=== PATIENT | male | born 1955 | race Caucasian/White ===

== ENCOUNTER 2017-01-23 07:55 | Outpatient (CLI) | payer MEDICARE ==
[2017-01-23] VITALS (19 sets, daily range): BP systolic 115–147; BP diastolic 76–92
[~2017-01-23 07:55] MED LIST: ARIP30TA11 PO; ARMO250T2 PO; ASPI-611 PO; CLON1TAB4 PO; FLUO60SO2 TOP; HYDR-3972 PO; KETO120S2 TOP; MUPI15CR TOP; NITR0.4T51 SL; OMEP-50 PO; SUCR1ORA2 PO; TAMS0.4C32 PO; vitamin D PO
== END 2017-01-23 23:59 | disposition home or self-care (01) ==
LOC: CARD DIAG 07:55
PROVIDERS: ATTEND Internal Medicine Interventional Cardiology
DX: R42 Dizziness and giddiness (principal); I10 Essential (primary) hypertension
CPT/HCPCS: 93660

== ENCOUNTER 2018-05-24 03:25 | Outpatient (CLI) | payer MEDICARE ==
[~2018-05-24 03:25] MED LIST changes: +CLON1TAB12 PO; -CLON1TAB4 PO; -KETO120S2 TOP; +KETO120S3 TOP
== END 2018-05-24 23:59 | disposition home or self-care (01) ==
LOC: DIABETIC 03:25
PROVIDERS: ATTEND Internal Medicine
DX: E11.65 Type 2 diabetes mellitus with hyperglycemia (principal); I11.0 Hypertensive heart disease with heart failure; I50.9 Heart failure, unspecified; Z79.84 Long term (current) use of oral hypoglycemic drugs; Z88.8 Allergy status to other drugs, medicaments and biological substances
CPT/HCPCS: G0108

== ENCOUNTER 2018-07-04 12:34 | Observation (INO) | payer MEDICARE ==
[~2018-07-04] VITALS: Ht 180.3 cm; Wt 87.3 kg
[2018-07-04 13:13] LABS: BASOPHILS # (AUTO) 0.1 X10'3 (0-0.2); BASOPHILS % (AUTO) 0.8 % (0-1); EOSINOPHILS # (AUTO) 0.2 X10'3 (0-0.9); EOSINOPHILS % (AUTO) 1.8 % (0-6); HEMATOCRIT 38.6 % (42.0-52.0); HEMOGLOBIN 12.7 g/dl (14.0-17.9); LYMPHOCYTES % (AUTO) 32.3 % (21-51); MEAN CORPUSCULAR HEMOGLOBIN 27.9 PG (27.0-31.0); MEAN CORPUSCULAR VOLUME 84.7 FL (78-98); MEAN PLATELET VOLUME 7.6 FL (7.4-10.4); MONOCYTES # (AUTO) 0.4 X10'3 (0-0.9); MONOCYTES % (AUTO) 4.5 % (2-12); NEUTROPHILS # (AUTO) 5.7 X10'3 (1.8-7.7); NEUTROPHILS % (AUTO) 60.6 % (42-75); PLATELET COUNT 240 X10'3 (140-440); RED BLOOD COUNT 4.56 X10'6 (4.70-6.10); RED CELL DISTRIBUTION WIDTH 14.2 % (11.5-14.5); WHITE BLOOD COUNT 9.4 X10'3 (4.5-11.0)
[2018-07-04 13:24] LABS: ALANINE AMINOTRANSFERASE 30 U/L (12-78); ALBUMIN 3.6 G/DL (3.4-5.0); ALBUMIN/GLOBULIN RATIO 1.1 (1.1-1.5); ALKALINE PHOSPHATASE 142 IU/L (46-116); ANION GAP 7 (8-16); ASPARTATE AMINO TRANSFERASE 15 U/L (10-37); BILIRUBIN,TOTAL 0.2 MG/DL (0.1-1.0); BLOOD UREA NITROGEN 17 MG/DL (7-18); BUN/CREATININE RATIO 16.7 (5.4-32.0); CALCIUM 8.9 MG/DL (8.5-10.1); CHLORIDE 104 MMOL/L (99-107); CREATININE 1.02 MG/DL (0.60-1.10); GLUCOSE 181 MG/DL (70-104); POTASSIUM 4.1 MMOL/L (3.5-5.1); SODIUM 137 MMOL/L (135-145); TOTAL CARBON DIOXIDE 26.3 MMOL/L (24-32); TOTAL PROTEIN 6.9 G/DL (6.4-8.2); eGFR 74 ML/MIN
[2018-07-04 13:26] LABS: PARTIAL THROMBOPLASTIN TIME 29 SECONDS (22-32)
[2018-07-04] MEDS ORDERED: NITR0.4T SL (18:17)
[2018-07-04] MEDS ORDERED: GABA-532 PO (18:17)
[2018-07-04] MEDS ORDERED: VENL75CA61 PO (18:18)
[2018-07-04] MEDS ORDERED: MODA200T48 PO (18:18)
[2018-07-04] MEDS ORDERED: BENZ200C53 PO (18:18)
[2018-07-04] MEDS ORDERED: DOXY-224 PO (18:18)
[2018-07-04] MEDS ORDERED: DUTA0.5C16 PO (18:21)
[2018-07-04] MEDS ORDERED: CHOL100046 PO (18:21)
[2018-07-04] MEDS ORDERED: PITA4TAB2 PO (18:21)
[2018-07-04] MEDS ORDERED: GLIM1TAB46 PO (18:21)
[2018-07-04] MEDS ORDERED: LISI-604 PO (18:21)
[2018-07-04] MEDS ORDERED: HYDROcodone/acetaminophen 10/325mg tab PO PRN (19:45)
[2018-07-04] MEDS ORDERED: nitroGLYCERIN 0.4mg SUBLingual tab SL PRN ×2 (19:45→19:50)
[2018-07-04] MEDS ORDERED: regadenoson 0.4mg/5ml syringe IV ONE (19:50)
[2018-07-04] MEDS ORDERED: magnesium 2GM in 50ml NS 50 ML IV PRN (19:50)
[2018-07-04] MEDS ORDERED: potassium Cl 40MEQ/NS 500ml 500 ML IV PRN (19:50)
[2018-07-04] MEDS ORDERED: dextrose ORAL solution 15 GM/59 ML bottle PO PRN ×2 (19:50)
[2018-07-04] MEDS ORDERED: potassium Cl 20 mEq SR tablet PO PRN ×2 (19:50)
[2018-07-04] MEDS ORDERED: magnesium 4gm in 100ml NS 100 ML IV PRN (19:50)
[2018-07-04] MEDS ORDERED: aminophylline 250mg/10ml inj. IV PRN (19:50)
[2018-07-04] MEDS ORDERED: magnesium Cl slow-release 64mg tablet PO PRN (19:50)
[2018-07-04] MEDS ORDERED: glucagon, human recombinant 1mg kit SUBCUT PRN (19:50)
[2018-07-04] MEDS ORDERED: MESSAGE TO PHARMACY PO ONE (19:50)
[2018-07-04] MEDS ORDERED: acetaminophen 325mg tablet PO PRN (19:50)
[2018-07-04] MEDS ORDERED: metoprolol tartrate 1mg/ml inj IV PRN (19:50)
[2018-07-04] MEDS ORDERED: dextrose 50%-water 50ml dispensing syringe IV PRN ×2 (19:50)
[2018-07-04] MEDS ORDERED: magnesium hydroxide 30ml (MOM) UD suspension PO PRN (19:50)
[2018-07-04] MEDS ORDERED: mag hydrox/Alum hydrox/simeth 30ml oral suspension PO PRN (19:50)
[2018-07-04] MEDS ORDERED: potassium CL 10mEq/100ml bag 100 ML IV PRN (19:50)
[2018-07-04] MEDS ORDERED: insulin Lispro (HumaLOG) vial - multi-dose SQ SCH (19:50)
[2018-07-04] MEDS ORDERED: ondansetron/PF 4mg/2ml inj IV PRN (19:50)
[2018-07-04] MEDS ORDERED: docusate sod 100mg capsule PO SCH (20:00)
[2018-07-04] MEDS ORDERED: metoprolol tartrate 12.5mg (1/2 tablet) PO SCH (20:00)
--- NOTE | 2018-07-04 20:04 | NUR ---
spoke to pt and his daughter, they both confirm that he has no allergy to gabapentin
[2018-07-04 20:27] LABS: HEMOGLOBIN A1C 8.3 % (4.5-6.2)
[2018-07-04 21:00] VITALS: BP 122/76
[2018-07-04] MEDS: CefTRIAXone/D5W-Rocephin 1gm 50 ML IV SCH (21:26)
[2018-07-04] MEDS: clonazePAM 1mg tablet PO SCH (21:28)
[2018-07-04] MEDS: benzonatate 100mg capsule PO SCH (21:29)
[2018-07-04] MEDS: heparin, porcine 5000 units/ml vial SQ SCH (21:34)
[2018-07-04] MEDS: aspirin 81mg tablet.DR PO SCH (22:02)
[2018-07-05] VITALS (10 sets, daily range): BP systolic 99–136; BP diastolic 64–91
[2018-07-05 01:49] LABS: BASOPHILS # (AUTO) 0.1 X10'3 (0-0.2); BASOPHILS % (AUTO) 0.9 % (0-1); EOSINOPHILS # (AUTO) 0.2 X10'3 (0-0.9); EOSINOPHILS % (AUTO) 2.7 % (0-6); HEMATOCRIT 36.6 % (42.0-52.0); HEMOGLOBIN 12.3 g/dl (14.0-17.9); LYMPHOCYTES # (AUTO) 3.9 X10'3 (1.1-4.8); LYMPHOCYTES % (AUTO) 43.3 % (21-51); MEAN CORPUSCULAR HEMOGLOBIN 28.5 PG (27.0-31.0); MEAN CORPUSCULAR HGB CONC 33.6 g/dL (33.0-36.5); MEAN CORPUSCULAR VOLUME 84.7 FL (78-98); MEAN PLATELET VOLUME 7.9 FL (7.4-10.4); MONOCYTES # (AUTO) 0.5 X10'3 (0-0.9); MONOCYTES % (AUTO) 5.1 % (2-12); NEUTROPHILS # (AUTO) 4.3 X10'3 (1.8-7.7); PLATELET COUNT 217 X10'3 (140-440); RED BLOOD COUNT 4.32 X10'6 (4.70-6.10); RED CELL DISTRIBUTION WIDTH 14.2 % (11.5-14.5)
[2018-07-05 02:01] LABS: ALANINE AMINOTRANSFERASE 33 U/L (12-78); ALBUMIN 3.2 G/DL (3.4-5.0); ALBUMIN/GLOBULIN RATIO 1.1 (1.1-1.5); ALKALINE PHOSPHATASE 126 IU/L (46-116); ANION GAP 8 (8-16); ASPARTATE AMINO TRANSFERASE 14 U/L (10-37); BILIRUBIN,TOTAL 0.1 MG/DL (0.1-1.0); BLOOD UREA NITROGEN 16 MG/DL (7-18); BUN/CREATININE RATIO 18.6 (5.4-32.0); CALCIUM 8.6 MG/DL (8.5-10.1); CHLORIDE 107 MMOL/L (99-107); CHOL/HDL RATIO 2.4 (0.00-4.99); CHOLESTEROL 97 MG/DL (0-200); CREATININE 0.86 MG/DL (0.60-1.10); GLUCOSE 148 MG/DL (70-104); HDL CHOLESTEROL 40 MG/DL (35-60); LDL CHOLESTEROL 42 MG/DL (50-100); MAGNESIUM 1.4 MG/DL (1.5-2.4); POTASSIUM 3.5 MMOL/L (3.5-5.1); SODIUM 142 MMOL/L (135-145); TOTAL CARBON DIOXIDE 26.9 MMOL/L (24-32); TOTAL PROTEIN 6.2 G/DL (6.4-8.2); TRIGLYCERIDES 173 MG/DL (20-135); eGFR 90 ML/MIN
--- NOTE | 2018-07-05 06:26 | NUR ---
Problems reprioritized. Patient report given, questions answered & plan of care reviewed with Stephan RN.
--- NOTE | 2018-07-05 06:30 | NUR ---
Patient in room [facility]. I have received report from Ly/Mateo CARTER and had the opportunity to ask questions and assume patient care.
--- NOTE | 2018-07-05 06:40 | NUR ---
Observed and reviewed charting of Mateo CARTER, agree with care.
[2018-07-05] MEDS ORDERED: pantoprazole 40mg Tablet.DR PO SCH (07:30)
[2018-07-05] MEDS ORDERED: gabapentin 300mg capsule PO SCH (08:00)
[2018-07-05] MEDS ORDERED: aripiprazole 5mg tablet PO SCH (08:00)
[2018-07-05] MEDS ORDERED: lisinopril 5mg tablet PO SCH (08:00)
[2018-07-05] MEDS ORDERED: modafinil 100mg tablet PO SCH (08:00)
[2018-07-05] MEDS ORDERED: atorvastatin 20mg tablet PO SCH (08:00)
[2018-07-05] MEDS ORDERED: vitamin D (cholecalciferol) 1,000 unit tablet PO SCH (08:00)
[2018-07-05] MEDS ORDERED: fluticasone nasal spray 16GM bottle NS SCH (08:00)
[2018-07-05] MEDS: heparin, porcine 5000 units/ml vial SQ SCH (08:00)
[2018-07-05] MEDS ORDERED: tamsulosin 0.4mg capsule PO SCH (08:00)
[2018-07-05] MEDS ORDERED: venlafaxine XR 75mg capsule (Q24H) PO SCH (08:00)
[2018-07-05] MEDS ORDERED: lisinopril 10 MG tablet PO SCH (08:00)
[2018-07-05] MEDS ORDERED: K and/or MAG REPLACEMENT MC SCH (08:00)
[2018-07-05] MEDS ORDERED: dutasteride 0.5 MG capsule PO SCH (08:00)
[2018-07-05] MEDS ORDERED: aspirin 81mg tablet.DR PO SCH (08:00)
[2018-07-05] MEDS ORDERED: pneumococcal 23-VAL P-sac vacc 25 mcg/0.5ml vial IMVAC ONE (10:00)
[2018-07-05] MEDS: clonazePAM 1mg tablet PO SCH (10:23)
[2018-07-05] MEDS: aspirin 81mg tablet.DR PO SCH (10:24)
[2018-07-05] MEDS: benzonatate 100mg capsule PO SCH (10:28)
[2018-07-05] MEDS: CefTRIAXone/D5W-Rocephin 1gm 50 ML IV SCH (11:47)
[2018-07-05] MEDS ORDERED: regadenoson 0.4mg/5ml syringe IV ONE ×2 (12:25→12:33)
[2018-07-05] MEDS ORDERED: aminophylline inj. 10 ML IV ONE (12:32)
--- NOTE | 2018-07-05 14:30 | NUR ---
DM consult for newly diagnosed DM with A1c of 8.3, patient given written DM education handout with verbal review and referral to outpatient DM education class on Sunday. Pending discharge today. Addendum: 07/05/18 at [address] Amended: Links added.
--- NOTE | 2018-07-05 16:00 | NUR ---
Patient discharged into the care of his family, Patient IV taken out at [facility] of discharge, canula was whole and intact. Patient understand to have follow up with PCP and project scientist, but has no change to medications at this time. All belongings were sent home with patient at time of discharge.
== END 2018-07-05 16:09 | disposition home or self-care (01) ==
LOC: ER 12:34 → SUR 3N 20:30 → CMPBEDREQ 21:59 → UNDODISOB 07-05 12:32
PROVIDERS: ADMIT Internal Medicine; ATTEND Internal Medicine
DX: R07.89 Other chest pain (principal); E78.5 Hyperlipidemia, unspecified; F31.9 Bipolar disorder, unspecified; E11.9 Type 2 diabetes mellitus without complications; I25.10 Atherosclerotic heart disease of native coronary artery without angina pectoris; I11.0 Hypertensive heart disease with heart failure; I50.9 Heart failure, unspecified; I25.2 Old myocardial infarction; E78.00 Pure hypercholesterolemia, unspecified; Z88.5 Allergy status to narcotic agent; Z79.899 Other long term (current) drug therapy; Z79.82 Long term (current) use of aspirin; Z95.5 Presence of coronary angioplasty implant and graft
CPT/HCPCS: 36415; 71045; 78452; 80053; 80061; 82948; 83036; 83735; 84484; 85025; 85610; 85730; 87070; 93005; 93017; 93306; 96365; 96366; 96372; 99284; A9500; G0378; J0280; J0696; J1644

== ENCOUNTER 2018-07-23 04:43 | Outpatient (CLI) | payer MEDICARE ==
[~2018-07-23 04:43] MED LIST changes: -ARMO250T2 PO; +BENZ200C53 PO; +CHOL100046 PO; +DOXY-224 PO; +DUTA0.5C16 PO; -FLUO60SO2 TOP; +GABA-532 PO; +GLIM1TAB46 PO; +LISI-604 PO; +MODA200T48 PO; -MUPI15CR TOP; +NITR0.4T SL; -NITR0.4T51 SL; +PITA4TAB2 PO; -SUCR1ORA2 PO; +VENL75CA61 PO; -vitamin D PO
== END 2018-07-23 23:59 | disposition home or self-care (01) ==
LOC: DIABETIC 04:43
PROVIDERS: ATTEND Internal Medicine
DX: E11.69 Type 2 diabetes mellitus with other specified complication (principal); Z79.84 Long term (current) use of oral hypoglycemic drugs; Z79.899 Other long term (current) drug therapy
CPT/HCPCS: G0108

== ENCOUNTER 2020-02-14 13:23 | Emergency (ER) | payer MEDICARE ==
[~2020-02-14] VITALS: Ht 180.3 cm; Wt 88.6 kg
[~2020-02-14 13:23] MED LIST changes: +AMA1T PO; -ARIP30TA11 PO; +ARIP30TA22 PO; -DUTA0.5C16 PO; +DUTA0.5C17 PO; -GLIM1TAB46 PO; -KETO120S3 TOP; +KETO120S5 TOP
== END 2020-02-14 15:28 | disposition home or self-care (01) ==
LOC: ER 13:25
DX: U07.1 COVID-19 (principal); J02.8 Acute pharyngitis due to other specified organisms; I25.10 Atherosclerotic heart disease of native coronary artery without angina pectoris; E78.00 Pure hypercholesterolemia, unspecified; I10 Essential (primary) hypertension; Z98.61 Coronary angioplasty status; Z88.6 Allergy status to analgesic agent; Z88.8 Allergy status to other drugs, medicaments and biological substances; Z79.82 Long term (current) use of aspirin; Z79.2 Long term (current) use of antibiotics; Z79.899 Other long term (current) drug therapy
CPT/HCPCS: 36415; 87635; 99283

== ENCOUNTER 2022-03-13 09:07 | Day surgery (SDC) | payer MEDICARE ==
[2022-03-09 15:08] LABS: BASOPHILS % (AUTO) 0.2 % (0-1); EOSINOPHILS # (AUTO) 0.2 X10'3 (0-0.9); EOSINOPHILS % (AUTO) 1.8 % (0-6); LYMPHOCYTES % (AUTO) 30.5 % (21-51); MEAN CORPUSCULAR HEMOGLOBIN 26.9 PG (27.0-31.0); MEAN CORPUSCULAR HGB CONC 32.8 g/dL (33.0-36.5); MEAN PLATELET VOLUME 7.3 FL (7.4-10.4); MONOCYTES # (AUTO) 0.5 X10'3 (0-0.9); MONOCYTES % (AUTO) 5.3 % (2-12); NEUTROPHILS # (AUTO) 6.1 X10'3 (1.8-7.7); NEUTROPHILS % (AUTO) 62.2 % (42-75); PRE OP HEMATOCRIT 38.2 % (42.0-52.0); PRE OP HEMOGLOBIN 12.5 g/dL (14.0-17.9); PRE OP PLATELET COUNT 249 X10'3 (140-440); RED BLOOD COUNT 4.66 X10'6 (4.70-6.10); RED CELL DISTRIBUTION WIDTH 13.8 % (11.5-14.5)
[2022-03-09 15:34] LABS: ALBUMIN 3.7 G/DL (3.4-5.0); ALBUMIN/GLOBULIN RATIO 1.1 (1.1-1.5); ALKALINE PHOSPHATASE 258 IU/L (46-116); BLOOD UREA NITROGEN 16 MG/DL (7-18); BUN/CREATININE RATIO 15.5 (5.4-32.0); CALCIUM 9.3 MG/DL (8.5-10.1); CHLORIDE 99 MMOL/L (99-107); CREATININE 1.03 MG/DL (0.60-1.10); PRE OP ALT 45 U/L (30-65); PRE OP ANION GAP 7 (8-16); PRE OP AST 32 U/L (10-37); PRE OP BILIRUB, TOTAL 0.3 MG/DL (0.0-1.0); PRE OP GLUCOSE 192 MG/DL (70-104); PRE OP POTASSIUM 4.2 MMOL/L (3.4-5.1); PRE OP SODIUM 136 MMOL/L (135-145); TOTAL CARBON DIOXIDE 29.9 MMOL/L (24-32); TOTAL PROTEIN 7.2 G/DL (6.4-8.2); eGFR 72 ML/MIN
[~2022-03-13] VITALS: Ht 180.3 cm; Wt 96.4 kg
[2022-03-13] VITALS (9 sets, daily range): BP systolic 112–127; BP diastolic 68–77
[~2022-03-13 09:07] MED LIST changes: +ARMO250T6; -BENZ200C53 PO; +BUPIVAcaine/PF 5 mg/ml 10ml ONE; +CLON-371; -CLON1TAB12 PO; +DOCUMENT DATE & TIME OF BETA-BLOCKER PO ONE; -DOXY-224 PO; -DUTA0.5C17 PO; +DUTA0.5C36 PO; +EZET10TA48; -HYDR-3972 PO; -KETO120S5 TOP; -LISI-604 PO; +LISI5TAB22 PO; +METF-438; +METO25TA6; -MODA200T48 PO; -OMEP-50 PO; +OMEP20CA16 PO; +PITA4TAB; -PITA4TAB2 PO; +PRAZ1CAP5; +ceFAZolin inj. 2,000 MG in dextrose 5%-water 100 ML IV ONE; +famotidine 20mg tablet PO ONE; +fentaNYL/PF 50MCG/1 ML 2ML syringe IV PRN; +labetalol 20mg/4ml (5mg/ml) syringe IV PRN; +ondansetron/PF 4mg/2ml inj IV PRN; +ringers solution, lacted 1,000 ML IV SCH
[2022-03-13] MEDS ORDERED: fentaNYL/PF 50MCG/1 ML 2ML syringe ONE ×2 (10:53→10:58)
[2022-03-13] MEDS ORDERED: MIDAZolam 1 MG/ML 5ML VIAL ONE (10:54)
[2022-03-13] MEDS ORDERED: ketorolac trometh. 30mg/ml inj. ONE (10:54)
[2022-03-13] MEDS ORDERED: LIDOcaine 0.5% (5mg/ml) 50ml vial ONE (10:54)
--- NOTE | 2022-03-13 11:29 | NUR ---
Received from OR via [facility], accompanied by Anesthesiologist DR CRUZ and report given by Anesthesiolgist. PT PRESENTS WITH PIV 20 RIGHT HAND, LEFT ELBOW DRESSING CDI, VSS. Addendum: 03/13/22 at 1141 by Linda Vega RN, RN Amended: Links added.
--- NOTE | 2022-03-13 12:29 | NUR ---
ABLE TO SAFELY AMBULATE AND TRANSFER SELF. IV TAKEN OUT WITHOUT ANY COMPLICATIONS. ALL DISCHARGE INSTRUCTIONS COVERED WITH PATIENT AND ALL QUESTIONS ANSWERED. PATIENT TAKEN OUT VIA WHEELCHAIR TO PERSONAL VEHICLE WHERE FAMILY/FRIEND DROVE PATIENT HOME. Addendum: 03/13/22 at 1235 by Linda Vega RN, RN Amended: Links added.
== END 2022-03-13 12:29 | disposition home or self-care (01) ==
LOC: PAS 09:07
PROVIDERS: ATTEND Orthopaedic Surgery Hand Surgery
DX: M77.12 Lateral epicondylitis, left elbow (principal); I10 Essential (primary) hypertension; J44.9 Chronic obstructive pulmonary disease, unspecified; G47.33 Obstructive sleep apnea (adult) (pediatric); I25.2 Old myocardial infarction; E11.9 Type 2 diabetes mellitus without complications; F31.9 Bipolar disorder, unspecified; F41.9 Anxiety disorder, unspecified; M19.022 Primary osteoarthritis, left elbow; M16.0 Bilateral primary osteoarthritis of hip; M18.11 Unilateral primary osteoarthritis of first carpometacarpal joint, right hand; Z98.890 Other specified postprocedural states; Z88.8 Allergy status to other drugs, medicaments and biological substances; Z79.84 Long term (current) use of oral hypoglycemic drugs; Z79.899 Other long term (current) drug therapy; Z95.5 Presence of coronary angioplasty implant and graft; Z82.3 Family history of stroke; Z81.8 Family history of other mental and behavioral disorders; Z82.61 Family history of arthritis
CPT/HCPCS: 24358; 36415; 80053; 82948; 85025; 93005; A6222; J0690; J1885; J2250; J3010; J3490; J7030; J7060; J7120; Z7506; Z7512; A4215; A4618; A6446; A6449; A7000

== ENCOUNTER 2023-02-09 12:22 | Emergency (ER) | payer MEDICARE ==
[~2023-02-09] VITALS: Ht 180.3 cm; Wt 81.8 kg
[~2023-02-09 12:22] MED LIST changes: -BUPIVAcaine/PF 5 mg/ml 10ml ONE; -DOCUMENT DATE & TIME OF BETA-BLOCKER PO ONE; -ceFAZolin inj. 2,000 MG in dextrose 5%-water 100 ML IV ONE; -famotidine 20mg tablet PO ONE; -fentaNYL/PF 50MCG/1 ML 2ML syringe IV PRN; -labetalol 20mg/4ml (5mg/ml) syringe IV PRN; -ondansetron/PF 4mg/2ml inj IV PRN; -ringers solution, lacted 1,000 ML IV SCH
[2023-02-09 13:11] LABS: ALANINE AMINOTRANSFERASE 23 U/L (12-78); ALBUMIN 3.2 G/DL (3.4-5.0); ALBUMIN/GLOBULIN RATIO 0.8 (1.1-1.5); ALKALINE PHOSPHATASE 145 IU/L (46-116); ANION GAP 9 (8-16); ASPARTATE AMINO TRANSFERASE 16 U/L (10-37); BILIRUBIN,TOTAL 0.3 MG/DL (0.1-1.0); BLOOD UREA NITROGEN 23 MG/DL (7-18); CALCIUM 9.7 MG/DL (8.5-10.1); CHLORIDE 98 MMOL/L (99-107); CREATININE 0.96 MG/DL (0.60-1.10); GLUCOSE 237 MG/DL (70-104); POTASSIUM 4.6 MMOL/L (3.5-5.1); PRO BRAIN NATRIURETIC PEPTIDE 346 PG/ML (0-125); SODIUM 135 MMOL/L (135-145); TOTAL CARBON DIOXIDE 27.6 MMOL/L (24-32); TOTAL PROTEIN 7.4 G/DL (6.4-8.2); eCRCL 77 ML/MIN; eGFR 78 ML/MIN
[2023-02-09 13:20] LABS: BASOPHILS % (AUTO) 0.3 % (0-1); EOSINOPHILS % (AUTO) 0.1 % (0-6); HEMATOCRIT 34.1 % (42.0-52.0); HEMOGLOBIN 11.1 g/dl (14.0-17.9); LYMPHOCYTES # (AUTO) 1.2 X10'3 (1.1-4.8); LYMPHOCYTES % (AUTO) 11.1 % (21-51); MEAN CORPUSCULAR HEMOGLOBIN 26.4 PG (27.0-31.0); MEAN CORPUSCULAR HGB CONC 32.5 g/dL (33.0-36.5); MEAN CORPUSCULAR VOLUME 81.2 FL (78-98); MEAN PLATELET VOLUME 6.7 FL (7.4-10.4); MONOCYTES # (AUTO) 0.4 X10'3 (0-0.9); NEUTROPHILS # (AUTO) 9.2 X10'3 (1.8-7.7); NEUTROPHILS % (AUTO) 84.5 % (42-75); PLATELET COUNT 434 X10'3 (140-440); RED BLOOD COUNT 4.19 X10'6 (4.70-6.10); RED CELL DISTRIBUTION WIDTH 15.9 % (11.5-14.5); WHITE BLOOD COUNT 10.9 X10'3 (4.5-11.0)
[2023-02-09 15:30] LABS: TOTAL CELLS COUNTED 100
[2023-02-09 15:31] LABS: ANISOCYTOSIS 1+; PLATELET ESTIMATE NORMAL; POLYCHROMASIA 1+
[2023-02-09] MEDS ORDERED: gabapentin 400mg capsule PO SCH (16:10)
[2023-02-09] MEDS ORDERED: oxyCODONE IR 5mg (immed. release) tablet PO ONE (16:10)
[2023-02-09] MEDS ORDERED: ketorolac trometh. 30mg/ml inj. IM ONE (16:10)
[2023-02-09] MEDS ORDERED: GABA-535 PO (16:11)
[2023-02-09] MEDS ORDERED: OXYC5CAP19 PO (16:15)
[2023-02-09 16:54] VITALS: BP 107/65; PULSE 80; RESP 18; TEMP 98; O2SAT 95
== END 2023-02-09 17:00 | disposition home or self-care (01) ==
LOC: ER 12:23
DX: M35.3 Polymyalgia rheumatica (principal); I10 Essential (primary) hypertension; I25.10 Atherosclerotic heart disease of native coronary artery without angina pectoris; E78.00 Pure hypercholesterolemia, unspecified; Z88.8 Allergy status to other drugs, medicaments and biological substances; Z79.82 Long term (current) use of aspirin; Z79.899 Other long term (current) drug therapy; Z95.5 Presence of coronary angioplasty implant and graft
CPT/HCPCS: 36415; 71045; 80053; 83880; 84484; 85007; 85025; 93005; 96372; 99285; J1885

== ENCOUNTER 2023-10-18 14:13 | Emergency (ER) | payer MEDICARE ==
[~2023-10-18] VITALS: Ht 180.3 cm; Wt 100.0 kg
[~2023-10-18 14:13] MED LIST changes: -AMA1T PO; +GABA-535 PO; +GLIM1TAB57 PO; +METH-798 PO; +OXYC5CAP22 PO
[2023-10-18 14:24] VITALS: TEMP 97.2
[2023-10-18] MEDS ORDERED: LIDOcaine 5% patch TP SCH (16:10)
[2023-10-18] MEDS: LIDOcaine 5% patch TP ONE (16:59)
[2023-10-18] MEDS: orphenadrine citrate 60mg/2ml inj. IM ONE (16:59)
[2023-10-18] MEDS: oxyCODONE IR 5mg (immed. release) tablet PO ONE (17:00)
[2023-10-18] MEDS ORDERED: NAPR500T6 PO (17:37)
[2023-10-18] MEDS ORDERED: BACL10TA2 PO (17:37)
[2023-10-18] MEDS ORDERED: HYDR-3964 PO (17:37)
[2023-10-18 18:33] VITALS: BP 146/86; PULSE 77; RESP 16; O2SAT 96
== END 2023-10-18 18:35 | disposition home or self-care (01) ==
LOC: ER 14:14
DX: M54.50 Low back pain, unspecified (principal); I25.10 Atherosclerotic heart disease of native coronary artery without angina pectoris; E78.00 Pure hypercholesterolemia, unspecified; I10 Essential (primary) hypertension; F31.9 Bipolar disorder, unspecified; Z88.8 Allergy status to other drugs, medicaments and biological substances; Z79.899 Other long term (current) drug therapy; Z79.82 Long term (current) use of aspirin; Z98.61 Coronary angioplasty status
CPT/HCPCS: 72131; 96372; 99285; J2360

== ENCOUNTER 2023-12-21 13:26 | Emergency (ER) | payer MEDICARE ==
[~2023-12-21] VITALS: Ht 180.3 cm; Wt 87.7 kg
[~2023-12-21 13:26] MED LIST changes: +BACL10TA2 PO; +NAPR500T6 PO
[2023-12-21] MEDS ORDERED: HYDR-3973 PO (16:51)
[2023-12-21 17:04] VITALS: BP 157/80; PULSE 79; RESP 16; TEMP 97.9; O2SAT 98
== END 2023-12-21 17:08 | disposition home or self-care (01) ==
LOC: ER 13:27
DX: M54.50 Low back pain, unspecified (principal); E78.00 Pure hypercholesterolemia, unspecified; G89.29 Other chronic pain; I10 Essential (primary) hypertension; I25.10 Atherosclerotic heart disease of native coronary artery without angina pectoris; Z88.5 Allergy status to narcotic agent; Z88.8 Allergy status to other drugs, medicaments and biological substances; Z79.899 Other long term (current) drug therapy; Z79.82 Long term (current) use of aspirin
CPT/HCPCS: 99281; 99283

== ENCOUNTER 2024-01-21 14:02 | Emergency (ER) | payer MEDICARE, OTHER ==
[~2024-01-21] VITALS: Ht 180.3 cm; Wt 88.9 kg
[~2024-01-21 14:02] MED LIST changes: -ARIP30TA22 PO; +ARIP30TA60 PO; +HYDR-3973 PO; +NAPR-1480 PO; -NAPR500T6 PO
[2024-01-21] MEDS ORDERED: HYDR-3965 PO (15:38)
[2024-01-21] MEDS ORDERED: LIDO700A32 TD (15:40)
[2024-01-21 15:54] VITALS: BP 146/86; PULSE 88; RESP 16; TEMP 97.7; O2SAT 99
== END 2024-01-21 16:03 | disposition home or self-care (01) ==
LOC: ER 14:03
DX: G89.29 Other chronic pain (principal); M54.50 Low back pain, unspecified; E78.00 Pure hypercholesterolemia, unspecified; I10 Essential (primary) hypertension; I25.10 Atherosclerotic heart disease of native coronary artery without angina pectoris; Z88.8 Allergy status to other drugs, medicaments and biological substances; Z88.5 Allergy status to narcotic agent
CPT/HCPCS: 99281; 99283

== ENCOUNTER 2024-03-26 13:52 | Emergency (ER) | payer MEDICARE ==
[~2024-03-26] VITALS: Ht 180.3 cm; Wt 89.5 kg
[~2024-03-26 13:52] MED LIST changes: -HYDR-3973 PO; +LIDO700A32 TD
[2024-03-26 14:12] VITALS: BP 151/97; PULSE 94; RESP 16; TEMP 96.9; O2SAT 95
[2024-03-26] MEDS ORDERED: METH150T PO (15:43)
[2024-03-26 16:24] LABS: BILIRUBIN,URINE NEGATIVE (Neg); COLOR,URINE YELLOW (Yellow); GLUCOSE, URINE 250 mg/dl (Neg); KETONES,URINE NEGATIVE (Neg); LEUKOCYTE ESTERASE ,URINE NEGATIVE (Neg); NITRITES, URINE NEGATIVE (Neg); OCCULT BLOOD,URINE NEGATIVE (Neg); PH,URINE 7.5 (4.8-8.0); PROTEIN,URINE NEGATIVE (Neg); UROBILINOGEN,URINE 0.2 E.U/dL (0.2-1.0)
[2024-03-26 16:41] LABS: CLARITY,URINE CLOUDY (Clear); UA COLLECTION TYPE CLN CATCH MIDSTREAM
[2024-03-26 16:47] LABS: AMORPHOUS PHOSPHATES 4+; BACTERIA,URINE 1+ /HPF (Neg); RBC,URINE 0-2 /HPF (0-2); SQUAMOUS EPITHELIAL CELL,UR NONE SEEN /LPF (FEW)
[2024-03-27] MEDS ORDERED: CEPH-585 PO (00:56)
== END 2024-03-26 16:54 | disposition home or self-care (01) ==
LOC: ER 13:53
DX: K59.00 Constipation, unspecified (principal); N39.0 Urinary tract infection, site not specified; R30.0 Dysuria; E78.00 Pure hypercholesterolemia, unspecified; I10 Essential (primary) hypertension; I25.10 Atherosclerotic heart disease of native coronary artery without angina pectoris; F31.9 Bipolar disorder, unspecified; Z88.5 Allergy status to narcotic agent; Z88.8 Allergy status to other drugs, medicaments and biological substances; Z79.899 Other long term (current) drug therapy
CPT/HCPCS: 74022; 81001; 87077; 87088; 87186; 99284

== ENCOUNTER 2024-04-28 14:37 | Emergency (ER) | payer MEDICARE ==
[~2024-04-28] VITALS: Ht 180.3 cm; Wt 86.0 kg
[~2024-04-28 14:37] MED LIST changes: +CEPH-585 PO; +METH150T PO
[2024-04-28 14:51] VITALS: BP 143/95; PULSE 90; RESP 18; TEMP 98; O2SAT 96
[2024-04-28 15:13] LABS: BILIRUBIN,URINE NEGATIVE (Neg); CLARITY,URINE CLOUDY (Clear); COLOR,URINE YELLOW (Yellow); GLUCOSE, URINE >=1000 mg/dl (Neg); KETONES,URINE NEGATIVE (Neg); LEUKOCYTE ESTERASE ,URINE NEGATIVE (Neg); NITRITES, URINE NEGATIVE (Neg); OCCULT BLOOD,URINE NEGATIVE (Neg); PROTEIN,URINE NEGATIVE (Neg); UROBILINOGEN,URINE 0.2 E.U/dL (0.2-1.0)
[2024-04-28 15:22] LABS: UA COLLECTION TYPE CLN CATCH MIDSTREAM
[2024-04-28 15:23] LABS: AMORPHOUS PHOSPHATES 4+; BACTERIA,URINE FEW /HPF (Neg); MUCUS STRANDS NONE SEEN /LPF (Neg); RBC,URINE NONE SEEN /HPF (0-2); SQUAMOUS EPITHELIAL CELL,UR NONE SEEN /LPF (FEW); WBC,URINE 0-4 /HPF (0-4)
== END 2024-04-28 17:33 | disposition left against medical advice (07) ==
LOC: ER 14:37
DX: N48.89 Other specified disorders of penis (principal); R35.89 Other polyuria; R35.0 Frequency of micturition; Z53.21 Procedure and treatment not carried out due to patient leaving prior to being seen by health care provider; Z88.8 Allergy status to other drugs, medicaments and biological substances; Z88.5 Allergy status to narcotic agent
CPT/HCPCS: 81001

== ENCOUNTER 2024-05-19 17:01 | Emergency (ER) | payer MEDICARE ==
[~2024-05-19] VITALS: Ht 175.3 cm; Wt 87.0 kg
[2024-05-19 17:29] VITALS: BP 132/75; PULSE 81; RESP 18; TEMP 97.8; O2SAT 95
[2024-05-19] MEDS ORDERED: HYDR-3973 PO (17:37)
== END 2024-05-19 17:54 | disposition home or self-care (01) ==
LOC: ER 17:02
DX: Z00.8 Encounter for other general examination (principal); Z76.0 Encounter for issue of repeat prescription; M06.9 Rheumatoid arthritis, unspecified; I11.9 Hypertensive heart disease without heart failure; I25.10 Atherosclerotic heart disease of native coronary artery without angina pectoris; E78.00 Pure hypercholesterolemia, unspecified; F31.9 Bipolar disorder, unspecified; Z88.5 Allergy status to narcotic agent; Z88.8 Allergy status to other drugs, medicaments and biological substances
CPT/HCPCS: 99283

== ENCOUNTER 2024-06-06 13:15 | Outpatient (CLI) | payer MEDICARE ==
[~2024-06-06 13:15] MED LIST changes: -CLON-371; +CLON-371 PO; -PRAZ1CAP5; +PRAZ1CAP5 PO
[2024-06-06 13:52] LABS: HEMOGLOBIN A1C > 12.0 % (4.5-6.2)
[2024-06-06 13:59] LABS: ALANINE AMINOTRANSFERASE 21 U/L (12-78); ALBUMIN 3.1 G/DL (3.4-5.0); ALBUMIN/GLOBULIN RATIO 0.8 (1.1-1.5); ALKALINE PHOSPHATASE 201 IU/L (46-116); ANION GAP 6 (8-16); ASPARTATE AMINO TRANSFERASE 13 U/L (10-37); BILIRUBIN,TOTAL 0.3 MG/DL (0.1-1.0); BLOOD UREA NITROGEN 22 MG/DL (7-18); BUN/CREATININE RATIO 23.2 (10.0-20.0); CALCIUM 8.8 MG/DL (8.5-10.1); CHLORIDE 100 MMOL/L (99-107); CHOL/HDL RATIO 5.5 (0.00-4.99); CHOLESTEROL 329 MG/DL (0-200); CREATININE 0.95 MG/DL (0.60-1.10); GLUCOSE 363 MG/DL (70-104); HDL CHOLESTEROL 60 MG/DL (35-60); LDL CHOLESTEROL 224 MG/DL (50-100); POTASSIUM 4.4 MMOL/L (3.5-5.1); SODIUM 135 MMOL/L (135-145); TOTAL CARBON DIOXIDE 29.3 MMOL/L (24-32); TRIGLYCERIDES 214 MG/DL (20-135); eGFR 78 ML/MIN
== END 2024-06-06 23:59 | disposition home or self-care (01) ==
LOC: LAB 13:15
PROVIDERS: ATTEND Specialist
DX: E11.65 Type 2 diabetes mellitus with hyperglycemia (principal); I10 Essential (primary) hypertension
CPT/HCPCS: 36415; 80053; 80061; 83036

== ENCOUNTER 2024-06-10 10:01 | Day surgery (SDC) | payer MEDICARE ==
[2024-06-06 12:47] LABS: BASOPHILS # (AUTO) 0.1 X10'3 (0-0.2); BASOPHILS % (AUTO) 0.7 % (0-1); EOSINOPHILS % (AUTO) 0.3 % (0-6); HEMATOCRIT 34.7 % (42.0-52.0); HEMOGLOBIN 11.4 g/dl (14.0-17.9); LYMPHOCYTES # (AUTO) 1.6 X10'3 (1.1-4.8); LYMPHOCYTES % (AUTO) 15.2 % (21-51); MEAN CORPUSCULAR HEMOGLOBIN 26.3 PG (27.0-31.0); MEAN CORPUSCULAR HGB CONC 32.9 g/dL (33.0-36.5); MEAN CORPUSCULAR VOLUME 79.9 FL (78-98); MEAN PLATELET VOLUME 7.6 FL (7.4-10.4); MONOCYTES # (AUTO) 0.6 X10'3 (0-0.9); MONOCYTES % (AUTO) 5.4 % (2-12); NEUTROPHILS # (AUTO) 8.2 X10'3 (1.8-7.7); NEUTROPHILS % (AUTO) 78.4 % (42-75); PLATELET COUNT 394 X10'3 (140-440); RED BLOOD COUNT 4.34 X10'6 (4.70-6.10); RED CELL DISTRIBUTION WIDTH 14.5 % (11.5-14.5); WHITE BLOOD COUNT 10.5 X10'3 (4.5-11.0)
[2024-06-06 12:58] LABS: APTT 28 SECONDS (22-32)
[2024-06-06 13:11] LABS: ALBUMIN 3.1 G/DL (3.4-5.0); ANION GAP 5 (8-16); BLOOD UREA NITROGEN 21 MG/DL (7-18); BUN/CREATININE RATIO 22.1 (10.0-20.0); CALCIUM 8.8 MG/DL (8.5-10.1); CHLORIDE 100 MMOL/L (99-107); CHOL/HDL RATIO 5.4 (0.00-4.99); CHOLESTEROL 332 MG/DL (0-200); CREATININE 0.95 MG/DL (0.60-1.10); GLUCOSE 370 MG/DL (70-104); HDL CHOLESTEROL 61 MG/DL (35-60); LDL CHOLESTEROL 220 MG/DL (50-100); POTASSIUM 4.3 MMOL/L (3.5-5.1); SODIUM 137 MMOL/L (135-145); TOTAL CARBON DIOXIDE 31.6 MMOL/L (24-32); TRIGLYCERIDES 215 MG/DL (20-135); eGFR 78 ML/MIN
[2024-06-10] VITALS (9 sets, daily range): BP systolic 138–159; BP diastolic 54–97; PULSE 66–78; RESP 12–15; TEMP 98.1; O2SAT 94–100
[~2024-06-10] VITALS: Ht 180.3 cm; Wt 86.3 kg
--- NOTE | 2024-06-10 10:27 | ELECTROCARDIOGRAPH REPORT ---
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 WANDY Augustine Measurements Intervals [place] Rate: 76 P: 72 UT: 164 QRS: 67 QRSD: 108 T: 73 QT: 446 QTc: 502 Interpretive Statements Sinus rhythm Nonspecific T abnormalities, lateral leads Prolonged QT interval Electronically Signed On 06-10-2024 17:52:[address] WANDY Augustine Please click the below link to view image of tracing.
[2024-06-10] MEDS ORDERED: METO50TA16 PO (10:51)
[2024-06-10] MEDS ORDERED: GLIM2TAB6 PO (10:51)
[2024-06-10] MEDS ORDERED: PANT40TA54 PO (10:51)
[2024-06-10] MEDS ORDERED: METF-900 PO (10:51)
[2024-06-10] MEDS ORDERED: PRE5T PO (10:51)
[2024-06-10] MEDS ORDERED: KEN0.1O TOP (10:57)
[2024-06-10] MEDS ORDERED: FLUT16SP BOTHNARES (10:57)
[2024-06-10] MEDS ORDERED: LAMO25TA72 PO (10:57)
[2024-06-10] MEDS ORDERED: FOLI1TAB27 PO (10:57)
[2024-06-10] MEDS ORDERED: heparin 1,000unit/ml 10ml vial 10 ML ONE (11:42)
[2024-06-10] MEDS ORDERED: verapamil 2.5 mg/ml inj IV ONE (11:42)
[2024-06-10] MEDS ORDERED: LIDOcaine 1% (10mg/ml) 2ml vial ONE (11:42)
[2024-06-10] MEDS ORDERED: iohexol 350MG/ML 100ml bottle IV ONE (11:42)
[2024-06-10] MEDS: LORazepam 0.5 MG tablet PO PRN (11:45)
[2024-06-10] MEDS: normal saline 1,000 ML IV SCH (11:46)
[2024-06-10] MEDS: diphenhydrAMINE 25mg capsule PO PRN (11:46)
[2024-06-10] MEDS ORDERED: nitroGLYCERIN 500mcg/5mL D5W 5 ML IV ONE (11:47)
[2024-06-10] MEDS ORDERED: midazolam 1 mg/ML 2ml injection ONE ×2 (11:49→13:35)
[2024-06-10] MEDS ORDERED: fentaNYL/PF 50MCG/1 ML 2ML syringe ONE (11:49)
[2024-06-10] MEDS ORDERED: HYDR-3972 PO (11:54)
[2024-06-10] MEDS ORDERED: HYDROcodone/acetaminophen 10/325mg tab PO PRN (14:20)
[2024-06-10] MEDS: HYDROcodone/acetaminophen 5mg/325mg tablet PO PRN (15:28)
--- NOTE | 2024-06-10 15:54 | CONSULTATION REPORT ---
History of Present Illness Providers to CC ~ Reason for Admit\Admit Dx: Severe three-vessel coronary disease Refering MD: HAMLET STAPLETON History of Present Illness Mr. Dupree is a very nice 68-year-old gentleman who has a known history of coronary artery disease. He tells me he is status post stenting approximately six or seven years ago. This was in the setting of an acute myocardial infarction. He was uncertain as to which vessel was addressed. He did reasonably well following that procedure but over the past six months to years noticed increasing difficulties with exertional dyspnea as well as anterior chest pain. He was seen in Dr. Shen's office and underwent an exercise stress test. This revealed anterior apical reperfusion. Subsequent left heart catheterization today revealed significant three-vessel coronary disease including RCA occlusion, preocclusive lesion of the LAD as well as moderate 60- 70% disease of the circumflex system. His risk factors include systemic inflammatory problems associated with Crohn's and associated rheumatoid arthritis, type 2 diabetes as well as a family history of coronary artery disease. He is a nonsmoker. He denies any difficulty with PND or orthopnea. He has had no cough, hemoptysis or intermittent claudication. We have been asked to see him for possible coronary artery bypass grafting. Allergies: Coded Allergies: atorvastatin (Verified Allergy, Unknown, 06/10/24) pitavastatin (Verified Allergy, Unknown, 06/10/24) pregabalin (Verified Allergy, Unknown, suicide ideations, rash, 03/26/24) rosuvastatin (Verified Allergy, Unknown, 06/10/24) simvastatin (Verified Allergy, Unknown, 06/10/24) morphine (Verified Adverse Reaction, Unknown, itch, 03/26/24) Home Medications Home Medications Active Reported Hydrocodon-Acetaminophn 10-325 tablet (Acetaminophen/Hydrocodone Bitart) 10mg- 325mg Tablet 1 Tab PO BID Fluticasone Propionate 50 Mcg/Actuation [place].susp 2 Sprays BOTHNARES DAILY Lamotrigine 25 Mg Tab.er.24 1 Tab PO DAILY Kenalog 0.1% Crm* (Triamcinolone Acetonide) 1 Applic Tube 1 Applic TOP Folic Acid* (Folic Acid) Y Tab 1 Tab PO DAILY Pantoprazole Sodium 40 Mg Tablet. 1 Tab PO DAILY Glimepiride 2 Mg Tablet 1 Tab PO BID predniSONE tablet (Prednisone) 5 Mg Tablet 1 Tab PO DAILY Metoprolol Tartrate 50 Mg Tablet 1 Tab PO BID Metformin ER* (Metformin HCl) 500 Mg Tab.sr.24h 4 Tab PO Clonazepam 1 Mg Tablet 1 Mg PO TID PRN Prazosin Hcl 1 Mg Capsule 2 Capsule PO DAILY Dutasteride 0.5 Mg Capsule 1 Cap PO DAILY Venlafaxine Hcl Er (Venlafaxine Hcl) 75 Mg Cap.sr.24h 2 Cap PO DAILY Nitrostat (Nitroglycerin) 0.4 Mg Tab.subl 1 Tab SL UD Aspir 81 (Aspirin) 81 Mg Tablet.dr 2 Tablet PO DAILY Tamsulosin Hcl 0.4 Mg Cap.sr.24h 2 Tab PO DAILY Past Medical History Medical History Comment Significant for Crohn's, rheumatoid arthritis, anemia of probable GI blood loss, type 2 diabetes Past Family History Family History: Patient reports no known family medical history. Physical Exam Last Vital Signs Recorded: RN Vital Signs have been reviewed: Yes, Temperature: 98.1, Source: Oral, Heart Rate: 78, Respiratory Rate: 12, BP: 138/84, Pulse Oximetry: 94, Weight: 86.300 General Appearance: alert, WD/WN, no apparent distress Neck: non-tender Respiratory: lungs clear, normal breath sounds Chest: no accessory muscle use Cardiovascular: regular rate, rhythm, no gallop, no JVD, no murmur Peripheral Pulses: 2+ carotid (R), 2+ carotid (L), 2+ radial (L), 2+ dorsalis pedis (R), 2+ dorsalis pedis (L) Gastrointestinal: normal palpation, non-tender, bowels sounds present Extremities: non-tender, no edema, no calf tenderness Neurologic: oriented x4 Psychiatric: normal mood/affect Review of Systems ROS ROS Comments: Generally he has had no anorexia or malaise, jaundice, pruritus, fever, chills or weight loss. GI he was problems with a chronic constipation and taking multiple plgt-plb-ooxybsc medications. He apparently has an appointment to see GI medicine to address in the future. He denies melena or bright red blood per rectum. He has had no problems with nausea or vomiting or severe abdominal pain. He does have a history of Crohn's disease. he denies dysuria, pyuria, hematuria, urgency, hesitancy or frequency. He does have nocturia 1-2 times per night. On multiple prostate medications. Neuromuscular he has a history of a stroke. He had left-sided weakness which has largely resolved although he tells me still has some clumsiness with his left hand. He denies any changes in his visual oro. He has had no difficulty with frequent or severe headaches. No changes in his coordination, ambulation, swallowing. Cardiopulmonary is as noted in history of present illness. Results Diagram Lab Result Diagram: 06/06/24 1224 06/06/24 1224 Assessment/Plan Additional Plan Mr. Dupree is a very nice 68-year-old gentleman with multiple medical problems. He has significant three-vessel coronary disease including RCA occlusion as well as a severe lesion of the LAD and moderate disease in the circumflex system. We have recommended that he undergo coronary artery bypass grafting for revascularization. The indications alternatives to surgery as well as the risks, benefits and possible complications associated with coronary bypass grafting in the setting have been discussed at some length was administered trigs. He states that he understands and accepts these and requested we proceed. All of his questions have been answered to his stated satisfaction. He would like to go home today. We will readmit him in 1-2 weeks for surgical intervention. EDDA SHELL III, MD Jun 10, 2024 15:54
--- NOTE | 2024-06-10 16:26 | CARDIAC CATH REPORT ---
Cardiac Cath Report Providers to CC CC: CHUCHO MANN MD Procedure Comments: 1. Left Heart Catheterization 2. Selective Coronary Angiography 3. Right Radial Artery Access Brief History/Indications: 68yo man with HTN, HLD, DM, CAD(s/p PCI LAD) with recurrent episodes of CP and anteroapical ischemia on stress testing. Techniques: After informed consent was obtained, the patient was brought to the cardiac catheterization laboratory and prepped and draped in usual sterile fashion for left heart catheterization and other procedures mentioned above. The right wrist was anesthetized with 1% Lidocaine and the right radial artery accessed via the Seldinger technique after which a 6Fr sheath was placed. Through this a TIG was used to engage the left ventricle, the left coronary artery, and a JR4 to engage the right coronary artery. At the conclusion of the case the sheath was removed and hemostasis obtained with a VascBand. Findings Findings: HEMODYNAMICS: LV: 145/7 mmHg LVEDP: 13 mmHg Ao: 148/72, MAP 108 mmHg CORONARY ARTERIES: Rt Dominant LMCA: Luminal Irregularities LAD: Prox-mid LAD stent with severe ISR D1: Luminal Irregularities D2: Luminal Irregularities LCx: 70% mid stenosis RCA: 100% occluded after the proximal portion with Lt-Rt and Rt-Rt collaterals PDA/PL: Fills via collaterals Results Results: 1. Multivessel CAD with severe ISR of prox-mid LAD stent, LCx disease, 100% occluded RCA 2. RRA Access, closed with VascBand RECOMMENDATIONS: 1. Recommend CT Surgery evaluation to consider CABG given multivessel CAD with 100% occluded RCA 2. Cont uptitration of max-tolerated GDMT TAMEKA MANN MD Jun 10, 2024 16:26
--- NOTE | 2024-06-10 21:10 | VASCULAR REPORT ---
VASC VL VENOUS VL VENOUS Clinical History: Preoperative evaluation. Comparison: None Technique: Grayscale images of the bilateral lower extremities were obtained. The bilateral greater s aphenous veins were measured and marked on both legs. Findings: In the right lower extremity, the greater saphenous vein is patent measuring 3.7 mm in the proximal t high, 3.8 mm in mid thigh, 3.2 mm in distal thigh, 1.7 mm in the proximal leg, 1.2 mm in mid leg an d 1.5 mm in distal leg. In the left lower extremity, the greater saphenous vein is patent measuring 3.7 mm in the proximal th igh, 2.6 mm in mid thigh, 2.7 mm in distal thigh, 1.7 mm in the proximal leg, 1.1 mm in mid leg and 1.1 mm in distal leg. Impression: The bilateral greater saphenous veins are patent. Measurements as above.
--- NOTE | 2024-06-11 14:27 | PROCEDURE NOTE - Respiratory ---
Procedure Note-Respiratory Providers to CC Copies To 1: TAMEKA MANN MD; EDDA SHELL III, MD Procedure Name: This is a spirometry study dated June 10, 2024. Spirometry measurements: The forced vital capacity is in the lower range of normal. The FEV1 is clearly reduced. The FEV1 ratio is also reduced. All of the measured flow rates show substantial reduction. Bronchodilator was not administered as part of the study. Conclusion: This study is abnormal. There is evidence for obstructive ventilatory defect in the moderately severe category. This is consistent with the patient's diagnosis of chronic airway obstruction. Continued use of bronchodilator therapy is recommended. We have no previous studies for comparison. LINDSEY GANDARA MD Jun 11, 2024 14:27
== END 2024-06-10 17:30 | disposition home or self-care (01) ==
LOC: SSTAY O 10:01
PROVIDERS: ATTEND Student in an Organized Health Care Education/Training Program
DX: R94.39 Abnormal result of other cardiovascular function study (principal); I25.10 Atherosclerotic heart disease of native coronary artery without angina pectoris; I10 Essential (primary) hypertension; E78.5 Hyperlipidemia, unspecified; E11.9 Type 2 diabetes mellitus without complications; M06.9 Rheumatoid arthritis, unspecified; I21.9 Acute myocardial infarction, unspecified; Z79.52 Long term (current) use of systemic steroids; Z79.82 Long term (current) use of aspirin; Z82.49 Family history of ischemic heart disease and other diseases of the circulatory system; Z88.5 Allergy status to narcotic agent; Z79.899 Other long term (current) drug therapy; J44.9 Chronic obstructive pulmonary disease, unspecified; Z88.8 Allergy status to other drugs, medicaments and biological substances; G47.33 Obstructive sleep apnea (adult) (pediatric); M35.3 Polymyalgia rheumatica
CPT/HCPCS: 36415; 80048; 80061; 82948; 85025; 85610; 85730; 93005; 93458; 93970; 94010; 99152; 99153; A6258; A6402; C1894; J1644; J2003; J2250; J3010; J3490; J7030; Q0163; Q9967

== ENCOUNTER 2024-06-27 14:33 | Emergency (ER) | payer MEDICARE ==
[~2024-06-27] VITALS: Ht 182.9 cm; Wt 67.0 kg
[~2024-06-27 14:33] MED LIST changes: -ARIP30TA60 PO; -ARMO250T6; -BACL10TA2 PO; -CEPH-585 PO; -CHOL100046 PO; -EZET10TA48; +FLUT16SP BOTHNARES; -GABA-532 PO; -GABA-535 PO; -GLIM1TAB57 PO; +GLIM2TAB6 PO; +HYDR-3972 PO; +KEN0.1O TOP; -LIDO700A32 TD; -LISI5TAB22 PO; -METF-438; -METH-798 PO; -METH150T PO; -METO25TA6; +METO50TA16 PO; -NAPR-1480 PO; -OMEP20CA16 PO; -OXYC5CAP22 PO; -PITA4TAB; +PRE5T PO; -VENL75CA61 PO
[2024-06-27 14:35] VITALS: TEMP 97.5
--- NOTE | 2024-06-27 14:44 | ELECTROCARDIOGRAPH REPORT ---
[facility] Test Date: 2024-06-27 Test Time: 14:41:23 Pat Name: HOSEA VARGHESE Department: EMERGENCY ROOM Room: Gender: M Irrigation Manager: TEJAL : 1955 Requested By: PETE KNIGHT Order Number: [id number] Reading MD: Measurements Intervals [place] Rate: 80 P: 156 MI: 149 QRS: 112 QRSD: 106 T: -73 QT: 361 QTc: 417 Interpretive Statements Sinus or ectopic atrial rhythm Left atrial enlargement Consider right ventricular hypertrophy Borderline T abnormalities, diffuse leads Please click the below link to view image of tracing.
[2024-06-27 15:01] LABS: BASOPHILS # (AUTO) 0.1 X10'3 (0-0.2); BASOPHILS % (AUTO) 0.7 % (0-1); EOSINOPHILS # (AUTO) 0.1 X10'3 (0-0.9); EOSINOPHILS % (AUTO) 0.7 % (0-6); HEMATOCRIT 27.8 % (42.0-52.0); HEMOGLOBIN 9.3 g/dl (14.0-17.9); LYMPHOCYTES # (AUTO) 1.9 X10'3 (1.1-4.8); LYMPHOCYTES % (AUTO) 12.3 % (21-51); MEAN CORPUSCULAR HGB CONC 33.6 g/dL (33.0-36.5); MEAN CORPUSCULAR VOLUME 80.4 FL (78-98); MEAN PLATELET VOLUME 6.9 FL (7.4-10.4); MONOCYTES # (AUTO) 0.6 X10'3 (0-0.9); MONOCYTES % (AUTO) 3.8 % (2-12); NEUTROPHILS # (AUTO) 12.9 X10'3 (1.8-7.7); NEUTROPHILS % (AUTO) 82.5 % (42-75); PLATELET COUNT 567 X10'3 (140-440); RED BLOOD COUNT 3.45 X10'6 (4.70-6.10); RED CELL DISTRIBUTION WIDTH 15.6 % (11.5-14.5); WHITE BLOOD COUNT 15.6 X10'3 (4.5-11.0)
--- NOTE | 2024-06-27 15:04 | RADIOLOGY REPORT ---
EXAM: DI CHEST,SINGLE VIEW HISTORY: CP COMPARISON: DI CHEST,SINGLE VIEW on DOS: 06/22/24, DI CHEST,SINGLE VIEW on DOS: 06/21/24, DI CHEST,SING LE VIEW on DOS: 06/18/24, DI CHEST,SINGLE VIEW on DOS: 06/17/24, DI CHEST,SINGLE VIEW on DOS: 06/16/24 TECHNIQUE: Portable upright AP view of the chest was performed. FINDINGS: No pneumothorax, consolidative infiltrates, or pulmonary edema. The heart is not enlarged. There are postoperative changes of median sternotomy. IMPRESSION: Postoperative changes of the heart without evidence of acute intrathoracic process.
[2024-06-27 15:17] LABS: ALANINE AMINOTRANSFERASE 17 U/L (12-78); ALBUMIN 2.9 G/DL (3.4-5.0); ALBUMIN/GLOBULIN RATIO 0.7 (1.1-1.5); ALKALINE PHOSPHATASE 213 IU/L (46-116); ANION GAP 7 (8-16); ASPARTATE AMINO TRANSFERASE 10 U/L (10-37); BILIRUBIN,TOTAL 0.2 MG/DL (0.1-1.0); BLOOD UREA NITROGEN 17 MG/DL (7-18); BUN/CREATININE RATIO 16.3 (10.0-20.0); CALCIUM 8.8 MG/DL (8.5-10.1); CHLORIDE 104 MMOL/L (99-107); CREATININE 1.04 MG/DL (0.60-1.10); GLUCOSE 252 MG/DL (70-104); POTASSIUM 4.7 MMOL/L (3.5-5.1); SODIUM 137 MMOL/L (135-145); TOTAL CARBON DIOXIDE 26.5 MMOL/L (24-32); TOTAL PROTEIN 6.8 G/DL (6.4-8.2); eCRCL 63 ML/MIN; eGFR 71 ML/MIN
[2024-06-27 15:22] LABS: PRO BRAIN NATRIURETIC PEPTIDE 1866 PG/ML (0-125)
[2024-06-27 15:32] VITALS: BP 142/104; PULSE 72; O2SAT 97
[2024-06-27] MEDS ORDERED: iohexol 350MG/ML 100ml bottle IV ONE (16:03)
[2024-06-27 16:34] VITALS: RESP 18
[2024-06-27] MEDS: HYDROcodone/acetaminophen 10/325mg tab PO ONE (16:34)
[2024-06-27 16:40] LABS: BILIRUBIN,URINE NEGATIVE (Neg); CLARITY,URINE CLEAR (Clear); COLOR,URINE YELLOW (Yellow); GLUCOSE, URINE 100 mg/dl (Neg); KETONES,URINE NEGATIVE (Neg); LEUKOCYTE ESTERASE ,URINE NEGATIVE (Neg); NITRITES, URINE NEGATIVE (Neg); OCCULT BLOOD,URINE NEGATIVE (Neg); PH,URINE 6.5 (4.8-8.0); PROTEIN,URINE NEGATIVE (Neg); UROBILINOGEN,URINE 0.2 E.U/dL (0.2-1.0)
[2024-06-27 16:41] LABS: UA COLLECTION TYPE VOIDED
--- NOTE | 2024-06-27 16:58 | RADIOLOGY REPORT ---
676 CTA Chest with intravenous contrast INDICATION: chest pain 10days post cabg COMPARISON: None TECHNIQUE: Multidetector spiral CTA of the chest was performed of the chest with intravenous contrast . PULMONARY ANGIOGRAPHY PROTOCOL was utilized using a bolus-tracking technique centered on the main p ulmonary artery. Axial, coronal and sagittal multiplanar and MIP reformats were performed. CONTRAST: Type of contrast: Omni 350 Contrast injected: 100 ml Radiation dose : Chest: CTDI volume is 27 mGy. Dose-length product is 676 mGy*cm The dose indicators for CT are the volume computed Tomography (CT) dose Index (CTDIvol) and the dose Length product (DLP), and are measured in units of mGy and mGy-cm, respectively. These indicators are not patient dose, but values generated from the CT scanner acquisition factors. The report includes radiation exposure data for exposures received during this examination. Findings: Pulmonary artery: No pulmonary embolus. Lower neck: Normal thyroid. Lungs: Emphysematous changes in both lungs. Atelectasis and scarring in the lung bases. Few less jas n 6 mm nodules in both lungs. Heart/Vascular Structures: Normal heart size. No pericardial effusion. Status post CABG. Lymph Nodes: No adenopathy Pleura: Trace bilateral pleural effusions. Musculoskeletal: Recent median sternotomy. Soft tissues: Normal. Upper abdomen: Limited portions of the upper abdomen are unremarkable. IMPRESSION: 1. No pulmonary embolism. 2. Smoking-related lung disease. Few less than 6 mm nodules in both lungs. Status post median sternot pastor. Trace bilateral pleural effusions. Clinical correlation and continued follow-up is recommended. HS:Y
[2024-06-27] MEDS ORDERED: HYDR-3973 PO (17:12)
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
== END 2024-06-27 17:20 | disposition left against medical advice (07) ==
LOC: ER 14:34
DX: R07.9 Chest pain, unspecified (principal); R91.1 Solitary pulmonary nodule; I11.9 Hypertensive heart disease without heart failure; I25.10 Atherosclerotic heart disease of native coronary artery without angina pectoris; D72.829 Elevated white blood cell count, unspecified; E78.00 Pure hypercholesterolemia, unspecified; F31.9 Bipolar disorder, unspecified; Z88.8 Allergy status to other drugs, medicaments and biological substances; Z79.82 Long term (current) use of aspirin; Z98.890 Other specified postprocedural states
CPT/HCPCS: 36415; 71045; 71275; 80053; 81003; 83605; 83880; 84145; 84484; 85025; 87040; 93005; 99285; Q9967

== ENCOUNTER 2024-07-06 10:47 | Emergency (ER) | payer MEDICARE ==
[~2024-07-06 10:47] MED LIST changes: +HYDR-3973 PO
--- NOTE | 2024-07-06 11:05 | ELECTROCARDIOGRAPH REPORT ---
[facility] Test Date: 2024-07-06 Test Time: 10:59:19 Pat Name: HOSEA VARGHESE Department: EMERGENCY ROOM Room: Gender: M Bundle Breaker: TWIN : 1955 Requested By: STEPHY JIMÉNEZ Order Number: [id number] Reading MD: Measurements Intervals [place] Rate: 69 P: 79 AR: 153 QRS: 85 QRSD: 102 T: 82 QT: 445 QTc: 477 Interpretive Statements Sinus rhythm Borderline right axis deviation RSR' in V1 or V2, probably normal variant Borderline prolonged QT interval Please click the below link to view image of tracing.
--- NOTE | 2024-07-06 11:43 | RADIOLOGY REPORT ---
CHEST RADIOGRAPH Indication: CP Technique: Single frontal view of the chest was obtained Comparison: DI CHEST,SINGLE VIEW on DOS: 06/27/24 FINDINGS: Lines and Tubes: None Lungs: No focal consolidation. Pleura: No effusion. No pneumothorax. Cardiomediastinal contours: Unremarkable Bones: No acute osseous abnormality. IMPRESSION: 1. No acute cardiopulmonary disease.
[2024-07-06 12:23] LABS: BASOPHILS # (AUTO) 0.1 X10'3 (0-0.2); EOSINOPHILS # (AUTO) 0.2 X10'3 (0-0.9); EOSINOPHILS % (AUTO) 2.1 % (0-6); HEMATOCRIT 24.2 % (42.0-52.0); LYMPHOCYTES # (AUTO) 1.4 X10'3 (1.1-4.8); LYMPHOCYTES % (AUTO) 16.6 % (21-51); MEAN CORPUSCULAR HEMOGLOBIN 26.2 PG (27.0-31.0); MEAN CORPUSCULAR HGB CONC 33.2 g/dL (33.0-36.5); MEAN CORPUSCULAR VOLUME 78.9 FL (78-98); MEAN PLATELET VOLUME 7.5 FL (7.4-10.4); MONOCYTES # (AUTO) 0.5 X10'3 (0-0.9); MONOCYTES % (AUTO) 5.8 % (2-12); NEUTROPHILS # (AUTO) 6.3 X10'3 (1.8-7.7); NEUTROPHILS % (AUTO) 74.5 % (42-75); PLATELET COUNT 417 X10'3 (140-440); RED BLOOD COUNT 3.06 X10'6 (4.70-6.10); RED CELL DISTRIBUTION WIDTH 15.2 % (11.5-14.5); WHITE BLOOD COUNT 8.4 X10'3 (4.5-11.0)
[2024-07-06 12:35] LABS: ALANINE AMINOTRANSFERASE 13 U/L (12-78); ALBUMIN 2.6 G/DL (3.4-5.0); ALBUMIN/GLOBULIN RATIO 0.7 (1.1-1.5); ALKALINE PHOSPHATASE 137 IU/L (46-116); ANION GAP 8 (8-16); BILIRUBIN,TOTAL 0.3 MG/DL (0.1-1.0); BLOOD UREA NITROGEN 19 MG/DL (7-18); BUN/CREATININE RATIO 19.4 (10.0-20.0); CALCIUM 8.9 MG/DL (8.5-10.1); CHLORIDE 102 MMOL/L (99-107); CREATININE 0.98 MG/DL (0.60-1.10); GLUCOSE 256 MG/DL (70-104); SODIUM 137 MMOL/L (135-145); TOTAL CARBON DIOXIDE 26.6 MMOL/L (24-32); TOTAL PROTEIN 6.1 G/DL (6.4-8.2); eGFR 76 ML/MIN
[2024-07-06 12:42] LABS: PRO BRAIN NATRIURETIC PEPTIDE 2782 PG/ML (0-125)
[2024-07-06] MEDS: HYDROcodone/acetaminophen 10/325mg tab PO ONE (12:43)
[2024-07-06] MEDS: ondansetron 4mg rapidly disintigrating tab PO ONE (12:43)
[2024-07-06 12:45] VITALS: TEMP 98.2
[2024-07-06 12:47] LABS: ASPARTATE AMINO TRANSFERASE 15 U/L (10-37); POTASSIUM 4.9 MMOL/L (3.5-5.1)
--- NOTE | 2024-07-06 12:50 | RADIOLOGY REPORT ---
DI SHOULDER, COMPLETE (MIN 2 VWS) INDICATION: BILAT SHOULDER PAIN TECHNICAL DATA: 2 views were obtained of the left shoulder. COMPARISON: None FINDINGS: There is no fracture or focal bone abnormality. The glenohumeral joint is normally maintained. The ac romioclavicular joint appears degenerative. The humeral head is not high riding. Adjacent soft tissue s are within normal limits. Degenerative changes are noted involving the visualized spine. IMPRESSION: No acute fracture or dislocation of the left shoulder.
--- NOTE | 2024-07-06 12:50 | RADIOLOGY REPORT ---
CLINICAL INFORMATION: 68 years old, Male; pain. TECHNIQUE: 3 views of the right shoulder were obtained. COMPARISON: None FINDINGS: No acute fracture or dislocation. Acromioclavicular joint space is narrowed with osteophyt e formation. Status post median sternotomy. IMPRESSION: 1. No evidence of acute bony abnormality.
--- NOTE | 2024-07-06 13:59 | RADIOLOGY REPORT ---
CLINICAL INDICATION: pain TECHNIQUE: 3 radiographic views of the right hand were obtained. Comparison: None FINDINGS/IMPRESSION: There is no evidence of acute fracture or dislocation. The visualized joint space is well maintained. The alignment is anatomical. 5 mm nonspecific density adjacent to the radial side of the 2nd digit proximal interphalangeal joint which may be from overlying structures. Questionable soft tissue edema of the radial side of the dist al 2nd digit.
[2024-07-06] MEDS ORDERED: HYDR-3973 PO (14:45)
--- NOTE | 2024-07-06 14:46 | Physician Documentation ---
History of Present Illness ~ Chief Complaint: Chest Pain Stated Complaint: CHEST WALL PAIN Time Seen by MD: 11:43 Primary Medical Doctor: NONE Mode of Arrival: EMS HPI 68-year-old male reports a chief complaint of chest pain and bilateral shoulder pain. Patient recently had a CABG performed. Patient states that it is he has shoulder pain bilaterally after he had his CABG she was at home when he began to fall secondary to mechanical fall and brace himself in his shoulder pain. Pat farzad states he does have slight chest pain but it was not cardiac in nature. Patient states that he would like to have blood work performed. Patient's pain is to bilateral shoulders. Denies fevers or chills. No other complaints at this time Medication Reconciliation Allergies: Coded Allergies: atorvastatin (Verified Allergy, Unknown, 07/06/24) pitavastatin (Verified Allergy, Unknown, 07/06/24) pregabalin (Verified Allergy, Unknown, suicide ideations, rash, 07/06/24) rosuvastatin (Verified Allergy, Unknown, 07/06/24) simvastatin (Verified Allergy, Unknown, 07/06/24) Scheduled Aspirin (Aspir 81), 2 TABLET PO DAILY, (Reported) Dutasteride (Dutasteride), 1 CAP PO DAILY, (Reported) Fluticasone Propionate (Fluticasone Propionate), 2 SPRAYS BOTHNARES DAILY, (Reported) Glimepiride (Glimepiride), 1 TAB PO BID, (Reported) Hydrocodone Bit/Acetaminophen (Hydrocodon-Acetaminophn 10-325 tablet), 1 TAB PO BID, (Reported) Metoprolol Tartrate (Metoprolol Tartrate), 1 TAB PO BID, (Reported) Nitroglycerin (Nitrostat), 1 TAB SL UD, (Reported) Prazosin Hcl (Prazosin Hcl), 2 CAPSULE PO DAILY, (Reported) Prednisone (predniSONE tablet), 1 TAB PO DAILY, (Reported) Tamsulosin Hcl (Tamsulosin Hcl), 2 TAB PO DAILY, (Reported) Scheduled PRN Clonazepam (Clonazepam), 1 MG PO TID PRN for ., (Reported) Hydrocodone Bit/Acetaminophen (Hydrocodone-Apap 10-325 Tablet), 1 TAB PO QID PRN PRN for pain Hydrocodone Bit/Acetaminophen (Hydrocodone-Apap 10-325 Tablet), 1 TAB PO QID PRN PRN for pain Miscellaneous Medications Triamcinolone Acetonide 0.1% Crm* (Kenalog 0.1% Crm*), 1 APPLIC TOP, (Reported) Past Medical History Past Medical History: Coronary Artery Disease, High Cholesterol, Hypertension, Myocardial Infarction, *GI/HEPATOBILIARY*, GI Bleed, Inflammatory Bowel Dz, Anemia, Bipolar Past Surgical History: angioplasty Patient History: FH: atrial fibrillation MOTHER FH: heart disease FATHER Other Past Family History: diabetes Smoking Status: Never smoker Alcohol Use: None Drug Use: none Lives with: Spouse Lives In: Home Occupation: disabled Physical Exam Vital Signs: Temperature: 98.2, Source: Oral, Heart Rate: 77, Respiratory Rate: 16, BP: 149/77, Pulse Oximetry: 96 Oxygen Flow Rate: 0 Physical Exam General: Well developed, well nourished, no distress. HEENT: Atraumatic, normal conjunctiva, moist mucous membranes. Neck: Full range of motion, supple. Respiratory: Lungs clear, no respiratory distress. Chest: No accessory muscle use, nontender. Cardiovascular: Regular rate and rhythm. Gastrointestinal: Soft, nontender, nondistended. Bowel sounds present. Extremities: Right shoulder exam: Negative for open wounds or gross deformities. Negative for overlying erythema, ecchymosis signs of infection. Positive tenderness to anterior and lateral deltoid. Neurovascular intact distally Left shoulder exam: Negative for open wounds or gross deformities. Negative for overlying erythema, ecchymosis signs of infection. Positive tenderness to the anterior and lateral deltoid. Neurovascular intact distally Back: No midline tenderness, no CVA tenderness. Neurologic: Oriented x4. Distal gross motor and sensory intact all four extremities. Moves all 4 extremities spontaneously. Psychiatric: Normal mood and affect. Skin: Normal color, warm and dry. No edema, no ecchymosis Progress Results/Orders Results/Orders Orders - GLORIA LUTHER Shoulder, Complete (Min 2 Vws) (07/06/24 12:38) Shoulder, Complete (Min 2 Vws) (07/06/24 12:38) Hand, Complete (3vw Min) (07/06/24 13:35) Completed Orders - GLORIA LUTHER Shoulder, Complete (Min 2 Vws) (07/06/24 12:38) Hydrocodone/Apap 10/325 ([place] 10/325mg (07/06/24 12:25) Ondansetron Disint. Tablet (Zofran Odt T (07/06/24 12:25) Shoulder, Complete (Min 2 Vws) (07/06/24 12:38) Hand, Complete (3vw Min) (07/06/24 13:35) Medications Received in ER Medications (Trade) Dose Ordered Sig/Dylon Route PRN Reason Start Time Stop Time Status Last Admin Dose Admin ([place] 10/325mg tab) 1 tab ONCE ONCE PO 07/06/24 12:25 07/06/24 12:26 DC 07/06/24 12:43 1 TAB (Zofran ODT tablet) 4 mg ONCE ONCE PO 07/06/24 12:25 07/06/24 12:26 DC 07/06/24 12:43 4 MG Vital Signs 07/06/24 07/06/24 07/06/24 07/06/24 10:53 11:04 11:04 11:10 Temp 98.2 98.2 Pulse 78 72 Resp 18 16 16 B/P (MAP) 135/68 (90) Pulse Ox 98 97 O2 Delivery Room Air* O2 Flow Rate 0 0 FiO2 N/A 07/06/24 07/06/24 07/06/24 07/06/24 12:43 12:45 13:45 15:17 Temp 98.2 Pulse 82 77 72 Resp 18 16 16 18 B/P (MAP) 140/74 (96) 149/77 (101) 134/79 (97) Pulse Ox 98 96 98 O2 Flow Rate 0 0 0 Laboratory Tests Test 07/06/24 11:47 07/06/24 11:52 07/06/24 13:36 Troponin I High Sensitivity 11 11 White Blood Count 8.4 Red Blood Count 3.06 L Hemoglobin 8.0 L Hematocrit 24.2 L Mean Corpuscular Volume 78.9 Mean Corpuscular Hemoglobin 26.2 L Mean Corpuscular Hemoglobin Concent 33.2 Red Cell Distribution Width 15.2 H Platelet Count 417 Mean Platelet Volume 7.5 Neutrophils (%) (Auto) 74.5 Lymphocytes (%) (Auto) 16.6 L Monocytes (%) (Auto) 5.8 Eosinophils (%) (Auto) 2.1 Basophils (%) (Auto) 1.0 Neutrophils # (Auto) 6.3 Lymphocytes # (Auto) 1.4 Monocytes # (Auto) 0.5 Eosinophils # (Auto) 0.2 Basophils # (Auto) 0.1 CBC Comment Sodium Level 137 Potassium Level 4.9 Chloride Level 102 Carbon Dioxide Level 26.6 Anion Gap 8 Blood Urea Nitrogen 19 H Creatinine 0.98 Estimated GFR/1.73 m2 76 BUN/Creatinine Ratio 19.4 Glucose Level 256 H Calcium Level 8.9 Total Bilirubin 0.3 Aspartate Amino Transf (AST/SGOT) 15 Alanine Aminotransferase (ALT/SGPT) 13 Alkaline Phosphatase 137 H Pro-B-Type Natriuretic Peptide 2782 H Total Protein 6.1 L Albumin 2.6 L Globulin 3.5 Albumin/Globulin Ratio 0.7 L Chemistry Comments Troponin I High Sens Percent Delta 0 Troponin I Hi Sens Absolute Change 0 Heart Score: Heart Score Response (Comments) Value History Slightly Suspicious 0 EKG Normal 0 Age >65 2 Risk Factors 1 or 2 risk factors 1 Troponin Normal limit 0 Total 3 Medical Decision Making Additional info obtained from: old records Findings After detailed discussion and joint medical decision-making, diagnostic and imaging results were discussed with the patient. At this time patient has bilateral shoulder pain consistent with a rotator cuff syndrome. Patient has a negative cardiac workup and no further workup required. Patient advised to follow up primary care. ER precautions were given. Patient is stable upon discharge. All patient questions answered to satisfaction Differential Dx:Considerations: Include: other (Fracture, contusion, strain, dissection, ACS) Departure Disposition: HOME / SELF CARE / HOMELESS Impression: Primary Impression: Chest pain Additional Impressions: Shoulder pain, bilateral Rotator cuff dysfunction Condition: Stable Discharge Instructions: Nonspecific Chest Pain, Adult, Rotator Cuff Tendinitis Referrals: NO PRIMARY CARE PROVIDER (PCP) Prescriptions Hydrocodone Bit/Acetaminophen (Hydrocodone-Apap 10-325 Tablet) 10mg/325mg Tablet 1 TAB PO QID PRN PRN for pain for 5 Days, #20 TAB Prov: GLORIA LUTHER 07/06/24 Education Educated: Patient Educated regarding: diagnosis, treatment Signature Scribe Signature: none used Attestation: Scribed for Gloria Luther by Gloria SANTOS . 07/06/24 14:46 GLORIA LUTHER July 06, 2024 14:46
[2024-07-06 15:17] VITALS: BP 134/79; PULSE 72; RESP 18; O2SAT 98
== END 2024-07-06 15:33 | disposition home or self-care (01) ==
LOC: ER 10:47
DX: R07.9 Chest pain, unspecified (principal); M25.512 Pain in left shoulder; M25.511 Pain in right shoulder; E78.00 Pure hypercholesterolemia, unspecified; I10 Essential (primary) hypertension; I25.10 Atherosclerotic heart disease of native coronary artery without angina pectoris; Z79.82 Long term (current) use of aspirin; Z88.8 Allergy status to other drugs, medicaments and biological substances; Z95.1 Presence of aortocoronary bypass graft; W19.XXXA Unspecified fall, initial encounter; Y93.89 Activity, other specified; Y92.89 Other specified places as the place of occurrence of the external cause; Y99.8 Other external cause status
CPT/HCPCS: 36415; 71045; 73030; 73130; 80053; 83880; 84484; 85025; 93005; 99285

== ENCOUNTER 2024-07-08 04:08 | Emergency (ER) | payer MEDICARE ==
[~2024-07-08] VITALS: Ht 185.4 cm; Wt 79.0 kg
[2024-07-08 04:15] VITALS: TEMP 98.5
--- NOTE | 2024-07-08 04:22 | Physician Documentation ---
History of Present Illness ~ Chief Complaint: Chest Pain Stated Complaint: CHEST PAIN Time Seen by MD: 04:22 Primary Medical Doctor: NONE HPI 68-year-old male, history of recent CABG, presenting with chest pain and other symptoms Here in the ED, the patient tells me I have MDD, and I just lost to my children. He then becomes very tearful. He then tells me that I have something in my brain, had a stroke, it is hard for me to think, there are Lewy bodies . He then becomes very tearful. He then tells me that he has been having some very sharp anterior chest pain, worse tonight. He was not really able to sleep. When I asked him if anything helps her if he is taking any medications he tells me that every time I come to the emergency department they try to give me medications, but nothing helps, I hate that shit. No one communicates." He is difficult to redirect. Medication Reconciliation Allergies: Coded Allergies: atorvastatin (Verified Allergy, Unknown, 07/06/24) pitavastatin (Verified Allergy, Unknown, 07/06/24) pregabalin (Verified Allergy, Unknown, suicide ideations, rash, 07/06/24) rosuvastatin (Verified Allergy, Unknown, 07/06/24) simvastatin (Verified Allergy, Unknown, 07/06/24) Scheduled Aspirin (Aspir 81), 2 TABLET PO DAILY, (Reported) Dutasteride (Dutasteride), 1 CAP PO DAILY, (Reported) Fluticasone Propionate (Fluticasone Propionate), 2 SPRAYS BOTHNARES DAILY, (Reported) Glimepiride (Glimepiride), 1 TAB PO BID, (Reported) Hydrocodone Bit/Acetaminophen (Hydrocodon-Acetaminophn 10-325 tablet), 1 TAB PO BID, (Reported) Metoprolol Tartrate (Metoprolol Tartrate), 1 TAB PO BID, (Reported) Nitroglycerin (Nitrostat), 1 TAB SL UD, (Reported) Prazosin Hcl (Prazosin Hcl), 2 CAPSULE PO DAILY, (Reported) Prednisone (predniSONE tablet), 1 TAB PO DAILY, (Reported) Tamsulosin Hcl (Tamsulosin Hcl), 2 TAB PO DAILY, (Reported) Scheduled PRN Clonazepam (Clonazepam), 1 MG PO TID PRN for ., (Reported) Hydrocodone Bit/Acetaminophen (Hydrocodone-Apap 10-325 Tablet), 1 TAB PO QID PRN PRN for pain Hydrocodone Bit/Acetaminophen (Hydrocodone-Apap 10-325 Tablet), 1 TAB PO QID PRN PRN for pain Miscellaneous Medications Triamcinolone Acetonide 0.1% Crm* (Kenalog 0.1% Crm*), 1 APPLIC TOP, (Reported) Past Medical History Past Medical History: Coronary Artery Disease, High Cholesterol, Hypertension, Myocardial Infarction, *GI/HEPATOBILIARY*, GI Bleed, Inflammatory Bowel Dz, Anemia, Bipolar Past Surgical History: angioplasty Patient History: FH: atrial fibrillation MOTHER FH: heart disease FATHER Other Past Family History: diabetes Alcohol Use: None Drug Use: none Lives with: Spouse Lives In: Home Occupation: disabled Review of Systems Constitutional: Denies: fever Cardiovascular: Reports: chest pain Psychiatric: Reports: depression Physical Exam Vital Signs: Source: Oral, Weight: 79.000 Physical Exam General: This is a very sad appearing older man, frequently tearful and frustrated HEENT: Atraumatic, oropharynx appears dry, conjunctiva are generally injected Heart: Regular rate and rhythm, normal-appearing peripheral perfusion Chest wall: Post CABG scar appears well healing and without significant erythema or drainage. He is quite tenderness on palpation of the chest wall Lungs: normal work of breathing, normal oxygen saturation on room air Abdomen: Soft, nondistended, nontender all quadrants Neuro: Alert and oriented Psychiatric: Labile affect, frequently tearful, appears frustrated, difficult to redirect Progress Results/Orders Results/Orders Completed Orders - STEPHY JIMÉNEZ MD Morphine 4mg/Ml Inj. (Morphine Inj.) (07/08/24 06:55) Medications Received in ER Medications (Trade) Dose Ordered Sig/Dylon Route PRN Reason Start Time Stop Time Status Last Admin Dose Admin Acetaminophen 100 ml @ 400 mls/hr Q6H ONCE IV 07/08/24 08:00 07/08/24 07:57 DC 07/08/24 05:06 400 MLS/HR (Valium inj) 2.5 mg ONCE ONCE IV 07/08/24 04:50 07/08/24 04:51 DC 07/08/24 05:05 2.5 MG (morphine inj.) 4 mg ONCE ONCE IV 07/08/24 06:55 07/08/24 07:08 DC 07/08/24 07:11 4 MG Vital Signs 07/08/24 07/08/24 07/08/24 07/08/24 04:15 04:24 07:11 07:48 Temp 98.5 Pulse 76 86 72 Resp 15 16 B/P (MAP) 128/71 119/71 (87) 129/79 (96) Pulse Ox 100 97 97 07/08/24 07:56 Pulse 72 Resp 15 B/P (MAP) 129/79 Pulse Ox 97 Laboratory Tests Test 07/08/24 04:53 White Blood Count 9.1 Red Blood Count 3.58 L Hemoglobin 9.0 L Hematocrit 27.9 L Mean Corpuscular Volume 78.0 Mean Corpuscular Hemoglobin 25.1 L Mean Corpuscular Hemoglobin Concent 32.1 L Red Cell Distribution Width 15.6 H Platelet Count 504 H Mean Platelet Volume 7.0 L Neutrophils (%) (Auto) 65.3 Lymphocytes (%) (Auto) 23.2 Monocytes (%) (Auto) 8.3 Eosinophils (%) (Auto) 1.8 Basophils (%) (Auto) 1.4 H Neutrophils # (Auto) 5.9 Lymphocytes # (Auto) 2.1 Monocytes # (Auto) 0.8 Eosinophils # (Auto) 0.2 Basophils # (Auto) 0.1 CBC Comment Sodium Level 142 Potassium Level 3.5 Chloride Level 105 Carbon Dioxide Level 27.2 Anion Gap 10 Blood Urea Nitrogen 14 Creatinine 1.16 H Estimated GFR/1.73 m2 62 BUN/Creatinine Ratio 12.1 Glucose Level 229 H Calcium Level 8.7 Total Bilirubin 0.3 Aspartate Amino Transf (AST/SGOT) 3 L Alanine Aminotransferase (ALT/SGPT) 14 Alkaline Phosphatase 157 H Troponin I High Sensitivity 12 Troponin I High Sens Percent Delta 9 Troponin I Hi Sens Absolute Change 1 Pro-B-Type Natriuretic Peptide 2234 H Total Protein 6.4 Albumin 2.7 L Globulin 3.7 Albumin/Globulin Ratio 0.7 L Chemistry Comments EKG/XRAY/CT/US/VASC/MRI EKG : Additional Comment I personally interpreted the EKG and this shows: Sinus rhythm, rate 88, QTC 496, T-wave inversion in the inferior leads, no STEMI Medical Decision Making Differential Dx:Considerations: Include: angina, aortic dissection, chest wall pain, CHF, costochondritis Additional Information Differential includes anxiety, depression Assessment 68-year-old male presenting with chest pain and other symptoms. Here in the ED, he appears quite depressed and sad about several things including his current situation and his family issues. He also reports chest pain, which per his description seems likely chest wall pain related to his recent surgery. It is difficult to tell exactly what his primary concern is tonight, whether it is actually the chest pain or his psychosocial issues and depression. A chest pain workup will be obtained. He was given IV Tylenol and a small dose of Valium, which seems like it would help with his chest discomfort and overall stress. EKG with sinus rhythm and nonspecific inferior T-wave changes. Initial laboratory testing is unremarkable including 1st troponin. Chest x-ray and repeat troponin are pending. The patient was signed out at shift change to the oncoming provider, and came and likely be discharged home if the rest of his testing is unremarkable. He would likely benefit from outpatient mental health services. I took over care of the patient from previous ED physician. Patient's lab workup came back unremarkable. Patient did have some lingering pain and we medicated him with 4 mg of IV morphine which resolved his pain. Patient was very upset it appears that he is suffering from post CABG depression and anxiety most likely. I advised him that he needs close follow up with his workshop manager as well as Cardiothoracic surgeon and his primary care physician. I also advised him on referral to pain management if he continues to have this chest pain which does not appear to be cardiac in nature anymore. Likely related to the sternotomy that he had. Return to the ED with any acutely worsening symptoms. Patient already had 20 tablets of [place] prescribed on last visit two days ago and advised him to take this medication as needed for his breakthrough pain. Departure Disposition: HOME / SELF CARE / HOMELESS Impression: Primary Impression: Chest wall pain Additional Impression: Depression Condition: Improved Discharge Instructions: Chest Wall Pain Additional Instructions: Take the pain medication that was prescribed to a couple of days ago if you have breakthrough pain. Follow up closely with your primary care physician as well as workshop manager and cardiothoracic surgeon. You may need a referral to pain management should this pain continue and not resolve. Return to the ED with any acutely worsening symptoms. Referrals: NO PRIMARY CARE PROVIDER (PCP) Education Educated: Patient Educated regarding: diagnosis Signature Scribe Signature: na Attestation: PETE Calle MD July 08, 2024 04:22 STEPHY JIMÉNEZ MD July 08, 2024 07:47
[2024-07-08 05:02] LABS: BASOPHILS # (AUTO) 0.1 X10'3 (0-0.2); BASOPHILS % (AUTO) 1.4 % (0-1); EOSINOPHILS # (AUTO) 0.2 X10'3 (0-0.9); EOSINOPHILS % (AUTO) 1.8 % (0-6); HEMATOCRIT 27.9 % (42.0-52.0); LYMPHOCYTES # (AUTO) 2.1 X10'3 (1.1-4.8); LYMPHOCYTES % (AUTO) 23.2 % (21-51); MEAN CORPUSCULAR HEMOGLOBIN 25.1 PG (27.0-31.0); MEAN CORPUSCULAR HGB CONC 32.1 g/dL (33.0-36.5); MONOCYTES # (AUTO) 0.8 X10'3 (0-0.9); MONOCYTES % (AUTO) 8.3 % (2-12); NEUTROPHILS # (AUTO) 5.9 X10'3 (1.8-7.7); NEUTROPHILS % (AUTO) 65.3 % (42-75); PLATELET COUNT 504 X10'3 (140-440); RED BLOOD COUNT 3.58 X10'6 (4.70-6.10); RED CELL DISTRIBUTION WIDTH 15.6 % (11.5-14.5); WHITE BLOOD COUNT 9.1 X10'3 (4.5-11.0)
[2024-07-08] MEDS: diazepam inj 5 MG/ML inj. IV ONE (05:05)
[2024-07-08] MEDS: acetaminophen 1,000mg/100ml IV 100 ML IV ONE (05:06)
[2024-07-08 05:19] LABS: ALANINE AMINOTRANSFERASE 14 U/L (12-78); ALBUMIN 2.7 G/DL (3.4-5.0); ALBUMIN/GLOBULIN RATIO 0.7 (1.1-1.5); ALKALINE PHOSPHATASE 157 IU/L (46-116); ANION GAP 10 (8-16); ASPARTATE AMINO TRANSFERASE 3 U/L (10-37); BILIRUBIN,TOTAL 0.3 MG/DL (0.1-1.0); BLOOD UREA NITROGEN 14 MG/DL (7-18); BUN/CREATININE RATIO 12.1 (10.0-20.0); CALCIUM 8.7 MG/DL (8.5-10.1); CHLORIDE 105 MMOL/L (99-107); CREATININE 1.16 MG/DL (0.60-1.10); GLUCOSE 229 MG/DL (70-104); POTASSIUM 3.5 MMOL/L (3.5-5.1); SODIUM 142 MMOL/L (135-145); TOTAL CARBON DIOXIDE 27.2 MMOL/L (24-32); TOTAL PROTEIN 6.4 G/DL (6.4-8.2); eCRCL 66 ML/MIN; eGFR 62 ML/MIN
[2024-07-08 05:26] LABS: PRO BRAIN NATRIURETIC PEPTIDE 2234 PG/ML (0-125)
[2024-07-08] MEDS: morphine 4 MG/ML inj SYRINge IV ONE (07:11)
--- NOTE | 2024-07-08 07:11 | RADIOLOGY REPORT ---
EXAM: XR Chest, 1 View CLINICAL INDICATION: CP TECHNIQUE: Frontal view of the chest. COMPARISON: DI CHEST,SINGLE VIEW on DOS: 07/06/24, DI CHEST,SINGLE VIEW on DOS: 06/27/24, DI CHEST,SI NGLE VIEW on DOS: 06/22/24, DI CHEST,SINGLE VIEW on DOS: 06/21/24, DI CHEST,SINGLE VIEW on DOS: 06/18/24 FINDINGS: LUNGS AND PLEURAL SPACES: Unremarkable. No consolidation. No pneumothorax. HEART: Unremarkable. No cardiomegaly. MEDIASTINUM: Unremarkable. Normal mediastinal contour. BONES/JOINTS: Unremarkable. No acute fracture. OTHER FINDINGS: . IMPRESSION: No acute cardiopulmonary process.
[2024-07-08 07:56] VITALS: BP 129/79; PULSE 72; RESP 15; O2SAT 97
--- NOTE | 2024-07-08 08:04 | ELECTROCARDIOGRAPH REPORT ---
[facility] Test Date: 2024-07-08 Test Time: 04:28:51 Pat Name: HOSEA VARGHESE Department: [facility] Patient ID: [facility]-[id number] Room: Gender: M [place]: : 1955 Requested By: PETE KNIGHT Order Number: [id number] Reading MD: Measurements Intervals [place] Rate: 88 P: 35 VT: 150 QRS: 55 QRSD: 103 T: 192 QT: 426 QTc: 516 Interpretive Statements Sinus rhythm LAE, consider biatrial enlargement RSR' in V1 or V2, right VCD or RVH Nonspecific T abnrm, anterolateral leads Prolonged QT interval Please click the below link to view image of tracing.
== END 2024-07-08 07:57 | disposition home or self-care (01) ==
LOC: ER 04:08
DX: R07.89 Other chest pain (principal); F31.9 Bipolar disorder, unspecified; E78.00 Pure hypercholesterolemia, unspecified; F41.9 Anxiety disorder, unspecified; I10 Essential (primary) hypertension; I25.10 Atherosclerotic heart disease of native coronary artery without angina pectoris; Z88.8 Allergy status to other drugs, medicaments and biological substances; Z95.1 Presence of aortocoronary bypass graft; Z79.82 Long term (current) use of aspirin
CPT/HCPCS: 36415; 71045; 80053; 83880; 84484; 85025; 93005; 96365; 96375; 99285; J0131; J2270; J3360

== ENCOUNTER 2024-09-22 18:56 | Emergency (ER) | payer MEDICARE ==
[~2024-09-22] VITALS: Ht 182.9 cm; Wt 72.7 kg
[~2024-09-22 18:56] MED LIST changes: +CIPR-259 PO; -KEN0.1O TOP; +LACT1CAP26 PO; +METF-900 PO
[2024-09-22 21:45] LABS: MEAN PLATELET VOLUME 7.3 FL (7.4-10.4); RED CELL DISTRIBUTION WIDTH 17.6 % (11.5-14.5)
--- NOTE | 2024-09-22 21:48 | RADIOLOGY REPORT ---
CLINICAL HISTORY: SEPSIS TECHNIQUE: View of the chest was obtained. WID: COMPARISON: DI CHEST,SINGLE VIEW on DOS: 07/08/24, DI CHEST,SINGLE VIEW on DOS: 07/06/24, DI CHEST,SING LE VIEW on DOS: 06/27/24, DI CHEST,SINGLE VIEW on DOS: 06/22/24, DI CHEST,SINGLE VIEW on DOS: 06/21/24 FINDINGS: Lungs: clear Cardiomediastinal silhouette: normal in size. Status post median sternotomy. Bones: No acute osseous abnormality. Imaged upper Abdomen: unremarkable. IMPRESSION: 1. NO ACUTE CARDIOPULMONARY PROCESS.
[2024-09-22 22:01] LABS: CREATININE 0.96 MG/DL (0.60-1.10); TOTAL CARBON DIOXIDE 28.6 MMOL/L (24-32); eCRCL 73 ML/MIN; eGFR 77 ML/MIN
[2024-09-22 22:57] LABS: LEUKOCYTE ESTERASE ,URINE NEGATIVE (Neg); NITRITES, URINE NEGATIVE (Neg); OCCULT BLOOD,URINE NEGATIVE (Neg)
[2024-09-22 22:58] LABS: UA COLLECTION TYPE URINAL
[2024-09-22] MEDS: HYDROcodone/acetaminophen 10/325mg tab PO ONE (23:52)
--- NOTE | 2024-09-22 23:52 | Physician Documentation ---
History of Present Illness ~ Chief Complaint: Back Pain Stated Complaint: BACK PAIN Time Seen by MD: 20:41 Primary Medical Doctor: NONE HPI Patient is seen today with complaints of acute on chronic low back pain and concern for repeat urinary tract infection. Patient states he was just released from the hospital with diagnosis of urosepsis. Patient states he has been having some right-sided flank pain but also confused by his acute on chronic low back pain. Patient denies taking opiate pain medications chronically and states he is working with his spine surgeon for solution of his back pain. Patient currently denies any saddle anesthesia or changes in bowel or bladder habits and has no other concern or complaint at this time. Medication Reconciliation Allergies: Coded Allergies: atorvastatin (Verified Allergy, Unknown, 09/14/24) pitavastatin (Verified Allergy, Unknown, 09/14/24) pregabalin (Verified Allergy, Unknown, suicide ideations, rash, 09/14/24) rosuvastatin (Verified Allergy, Unknown, 09/14/24) simvastatin (Verified Allergy, Unknown, 09/14/24) gluten (Unverified Adverse Reaction, Unknown, 09/16/24) Celiacs per MD note Scheduled Aspirin (Aspir 81), 2 TABLET PO DAILY, (Reported) Ciprofloxacin HCl (Cipro), 1 TAB PO Q12H Dutasteride (Dutasteride), 1 CAP PO DAILY, (Reported) Fluticasone Propionate (Fluticasone Propionate), 2 SPRAYS BOTHNARES DAILY, (Reported) Glimepiride (Glimepiride), 1 TAB PO BID, (Reported) Hydrocodone Bit/Acetaminophen (Hydrocodon-Acetaminophn 10-325 tablet), 1 TAB PO BID, (Reported) Lactobacillus Rhamnosus (Culturelle), 1 EACH PO BID Metformin Hcl* (Metformin ER*), 2 TAB PO BID, (Reported) Metoprolol Tartrate (Metoprolol Tartrate), 1 TAB PO BID, (Reported) Nitroglycerin (Nitrostat), 1 TAB SL UD, (Reported) Prazosin Hcl (Prazosin Hcl), 2 CAPSULE PO DAILY, (Reported) Prednisone (predniSONE tablet), 1 TAB PO DAILY, (Reported) Tamsulosin Hcl (Tamsulosin Hcl), 2 TAB PO DAILY, (Reported) Scheduled PRN Clonazepam (Clonazepam), 1 MG PO TID PRN for ., (Reported) Hydrocodone Bit/Acetaminophen (Hydrocodone-Apap 10-325 Tablet), 1 TAB PO QID PRN PRN for pain Discontinued Medications Triamcinolone Acetonide 0.1% Crm* (Kenalog 0.1% Crm*), 1 APPLIC TOP, (Reported) Discontinued Reason: patient no longer taking Past Medical History Past Medical History: Coronary Artery Disease, High Cholesterol, Hypertension, Myocardial Infarction, *GI/HEPATOBILIARY*, GI Bleed, Inflammatory Bowel Dz, Anemia, Bipolar Past Surgical History: angioplasty Patient History: FH: atrial fibrillation MOTHER, , Age: 93, Cause: Natural FH: heart disease FATHER, , Age: 80, Cause: Dementia Other Past Family History: diabetes Smoking Status: Never smoker Alcohol Use: None Drug Use: none Lives with: Spouse Lives In: Home Occupation: disabled Review of Systems Constitutional: Denies: chills, fever, weakness Eyes: Denies: pain, blurred vision ENT: Denies: ear pain, nose pain, throat pain, mouth pain Respiratory: Denies: cough, shortness of breath Cardiovascular: Denies: chest pain, palpitations Gastrointestinal: Denies: abdominal pain, nausea, vomiting Genitourinary: Denies: burning, dysuria Male Genitalia: Denies: penile discharge, testicular pain Neurological: Denies: headache, dizziness Musculoskeletal: Denies: pain, swelling Integumentary: Denies: rash, lesions Allergic/Immunologic: Denies: hives, itching Hematologic/Lymphatic: Denies: no symptoms reported Psychiatric: Denies: depression, anxiety Physical Exam Physical Exam Vital Signs: Source: Oral, Heart Rate: 63, Respiratory Rate: 18, BP: 135/65, Pulse Oximetry: 98, Weight: 72.730 Oxygen Flow Rate: 0 Physical Exam General: Awake and Alert, no acute distress. HEENT: Conjunctiva pink, Sclera clear, Mucus Membranes moist. Neck: Supple without masses and tenderness. Resp: Unlabored. Lungs clear to auscultation bilaterally. Heart: Regular Rate and rhythm, normal S1 and S2 without murmur, rub or gallop. Abdomen: Soft and non tender no organomegaly Musculoskeletal: Patient on exam does have significant decreased range of motion of his lumbar spine in all planes of motion. Patient is neurovascularly intact distally bilateral lower extremities. Motor function intact distally. Extremities: No cyanosis,clubbing or edema. Skin: Warm and Dry. Progress Results/Orders Results/Orders Orders - STEVENSON FELTON PAC Culture Blood (09/22/24 21:18) Chest,Single View (09/22/24 21:33) Hydrocodone/Apap 10/325 ([place] 10/325mg (09/22/24 23:30) Completed Orders - STEVENSON FELTON PAC Cbc/Diff (09/22/24 21:18) MG (09/22/24 21:18) Urinalysis, Cult If Indicated (09/22/24 21:18) Chest,Single View (09/22/24 21:33) BMP (09/22/24 21:18) Hs Troponin I W Calculations (09/22/24 21:18) Lacticsepsis (09/22/24 21:18) Vital Signs 09/22/24 09/22/24 19:07 21:20 Pulse 65 63 Resp 17 18 B/P (MAP) 138/67 135/65 (88) Pulse Ox 97 98 O2 Flow Rate 0 Laboratory Tests Test 09/22/24 21:33 09/22/24 22:50 White Blood Count 9.3 Red Blood Count 3.94 L Hemoglobin 9.2 L Hematocrit 28.2 L Mean Corpuscular Volume 71.5 L Mean Corpuscular Hemoglobin 23.4 L Mean Corpuscular Hemoglobin Concent 32.7 L Red Cell Distribution Width 17.6 H Platelet Count 350 Mean Platelet Volume 7.3 L Neutrophils (%) (Auto) 59.7 Lymphocytes (%) (Auto) 32.2 Monocytes (%) (Auto) 6.9 Eosinophils (%) (Auto) 0.4 Basophils (%) (Auto) 0.8 Neutrophils # (Auto) 5.6 Lymphocytes # (Auto) 3.0 Monocytes # (Auto) 0.6 Eosinophils # (Auto) 0.0 Basophils # (Auto) 0.1 CBC Comment Sodium Level 138 Potassium Level 3.6 Chloride Level 104 Carbon Dioxide Level 28.6 Anion Gap 5 L Blood Urea Nitrogen 16 Creatinine 0.96 Estimated GFR/1.73 m2 77 BUN/Creatinine Ratio 16.7 Glucose Level 108 H Lactic Acid Level 0.8 Calcium Level 8.8 Magnesium Level 1.4 L Troponin I High Sensitivity 8 Albumin 3.0 L Chemistry Comments Urine Specimen Description Urinal Urine Color Yellow Urine Clarity Clear Urine pH 6.0 Urine Specific [place] 1.020 Urine Protein Negative Urine Glucose (UA) Negative Urine Ketones Negative Urine Occult Blood Negative Urine Nitrite Negative Urine Bilirubin Negative Urine Urobilinogen 0.2 Urine Leukocyte Esterase Negative Urine Culture Indicated Not ind Volume Urine Centrifuged 10 ml Urine Comment Microbiology Date/Time Source Procedure Growth Status 09/22/24 21:33 Blood Arm Left Blood Culture - Preliminary NEGATIVE (LESS THAN 24 HOURS) Resulted Medical Decision Making Findings Patient is seen today with complaints of acute on chronic low back pain and concern for repeat urinary tract infection. Patient states he was just released from the hospital with diagnosis of urosepsis. Patient states he has been having some right-sided flank pain but also confused by his acute on chronic low back pain. Patient denies taking opiate pain medications chronically and states he is working with his spine surgeon for solution of his back pain. Patient currently denies any saddle anesthesia or changes in bowel or bladder habits and has no other concern or complaint at this time. Patient's labs show chronic anemia and urinalysis showed no sign of infection. Patient was given dose of [place] 10/325 mg one tab by mouth in the ED tonight and patient will follow up with orthopedic nuclear weapons mechanical specialist for further eval and treatment. Patient will continue to monitor symptoms closely and return to ED with any worsening, concerning or changing symptoms. Patient refused admission to the ER today. Departure Disposition: HOME / SELF CARE / HOMELESS Impression: Primary Impression: Low back pain Qualified Codes: M54.50 - Low back pain, unspecified; G89.29 - Other chronic pain Condition: Improved Discharge Instructions: Chronic Back Pain Additional Instructions: Patient's labs show chronic anemia and urinalysis showed no sign of infection. Patient was given dose of [place] 10/325 mg one tab by mouth in the ED tonight and patient will follow up with orthopedic nuclear weapons mechanical specialist for further eval and treatment. Patient will continue to monitor symptoms closely and return to ED with any worsening, concerning or changing symptoms. Referrals: NO PRIMARY CARE PROVIDER (PCP) Additional Comment Additional Comment Patient refuses admission to the hospital today. Signature Scribe Signature: No scribe Attestation: No scribe STEVENSON FELTON Sep 22, 2024 23:52
[2024-09-23] VITALS: BP 130/60; PULSE 60; RESP 18; TEMP 98.6; O2SAT 99
== END 2024-09-23 00:02 | disposition home or self-care (01) ==
LOC: ER 18:56
DX: G89.29 Other chronic pain (principal); M54.50 Low back pain, unspecified; E78.00 Pure hypercholesterolemia, unspecified; I10 Essential (primary) hypertension; I25.10 Atherosclerotic heart disease of native coronary artery without angina pectoris; I25.2 Old myocardial infarction; D64.9 Anemia, unspecified; F31.9 Bipolar disorder, unspecified; Z88.8 Allergy status to other drugs, medicaments and biological substances; Z79.82 Long term (current) use of aspirin; Z79.899 Other long term (current) drug therapy
CPT/HCPCS: 36415; 71045; 80048; 81003; 83605; 83735; 84484; 85025; 87040; 99284

== ENCOUNTER 2024-11-27 10:18 | Inpatient (IN) | payer MEDICARE, MEDICAID ==
[~2024-11-27] VITALS: Ht 182.9 cm; Wt 71.4 kg
[~2024-11-27 10:18] MED LIST changes: -CIPR-259 PO
[2024-11-27 11:01] LABS: MEAN PLATELET VOLUME 7.7 FL (7.4-10.4); RED CELL DISTRIBUTION WIDTH 19.9 % (11.5-14.5)
[2024-11-27 11:04] LABS: CREATININE 1.14 MG/DL (0.60-1.10); TOTAL CARBON DIOXIDE 27.9 MMOL/L (24-32); eCRCL 60 ML/MIN; eGFR 63 ML/MIN
[2024-11-27] MEDS: morphine 4 MG/ML inj SYRINge IV ONE ×2 (11:16→13:55)
[2024-11-27] MEDS: LidoCAINE 2% Topical Jelly 11mL syringe (UROJET) TOP ONE ×2 (11:18→15:05)
[2024-11-27 12:32] LABS: LEUKOCYTE ESTERASE ,URINE NEGATIVE (Neg); OCCULT BLOOD,URINE NEGATIVE (Neg)
[2024-11-27 12:43] LABS: UA COLLECTION TYPE FOLEY CATH
[2024-11-27 12:44] LABS: NITRITES, URINE NEGATIVE (Neg)
[2024-11-27 12:45] LABS: MUCUS STRANDS NONE SEEN /LPF (Neg); SQUAMOUS EPITHELIAL CELL,UR NONE SEEN /LPF (FEW)
[2024-11-27] MEDS ORDERED: iohexol 300mg/ml 100ml inj. ONE (13:02)
--- NOTE | 2024-11-27 13:52 | RADIOLOGY REPORT ---
Exam: CT CT ABDOMEN PELVIS W/ IV CONTRAST History: abdominal pain Comparison Study: CT CT ABDOMEN PELVIS on DOS: 09/15/24 TECHNIQUE: Multidetector CT of the abdomen and pelvis with IV contrast. Axial, coronal and sagittal multiplanar reformats were obtained from the axial data set by the technologist. Radiation Dose Information: CT Dose: CTDI volume is mGy. Dose-length product is mGy*cm FINDINGS: Bibasilar atelectasis with 1.5 x 2 cm right basilar patchy opacity. 4 mm left basilar solid nodule. Partially visualized heart is unremarkable. Liver, spleen, gallbladder, pancreas and adrenal glands unremarkable. Subcentimeter hypodense left renal lesion that is too small to characterize. Otherwise, kidneys, ureters are unremarkable. Urinary bladder is decompressed with Ramos catheter in place. Wall thickening of the urinary bladder. Foci of air within the urinary bladder which is most likely iatrogenic. Prostate is unremarkable. Mild wall thickening of the distal stomach. The small bowel loops unremarkable. Appendix is not definitely visualized. Question appendectomy. Small to moderate amount of fecal material within the colon. No evidence of intraperitoneal free air or free fluid. No evidence of aortic aneurysm or dissection. Moderate atherosclerotic calcification of the aorta and bilateral iliacs. No significant lymphadenopathy. Tiny fat containing umbilical hernia. Small fat containing bilateral inguinal hernias. Minimal body wall edema . No evidence of acute osseous abnormalities. IMPRESSION: Wall thickening of the decompressed urinary bladder. Recommend correlation with urinalysis for possible cystitis. Mild wall thickening of the distal stomach. Correlate for gastritis. Bibasilar atelectasis. Patchy right lower lobe opacity which may be due to infectious / inflammatory process with neoplasm not excluded. Follow-up is recommended. 4 mm solid nodule of the left lung base. Recommend follow-up per Fleischner criteria.
[2024-11-27] MEDS ORDERED: VENL150T3 PO (14:07)
[2024-11-27] MEDS ORDERED: BEMP180T PO (14:07)
[2024-11-27] MEDS ORDERED: EMPA25TA PO (14:07)
--- NOTE | 2024-11-27 14:11 | Physician Documentation ---
History of Present Illness ~ General Chief Complaint: Multiple Medical Complaints Stated Complaint: CONSTIPATION Time Seen by MD: 10:23 Primary Medical Doctor: NONE Mode of Arrival: EMS, Stretcher History of Present Illness Initial Comments 69-year-old male history of chronic back pain presenting for urinary retention and worsening back pain. No fall. No exacerbating or palliating factors. Has not been able to urinate today. No BM in "awhile" Medication Reconciliation Allergies: Coded Allergies: atorvastatin (Verified Allergy, Unknown, 11/27/24) pitavastatin (Verified Allergy, Unknown, 11/27/24) pregabalin (Verified Allergy, Unknown, suicide ideations, rash, 11/27/24) rosuvastatin (Verified Allergy, Unknown, 11/27/24) simvastatin (Verified Allergy, Unknown, 11/27/24) gluten (Unverified Adverse Reaction, Unknown, 11/27/24) Celiacs per MD note Scheduled Aspirin (Aspir 81), 2 TABLET PO DAILY, (Reported) Bempedoic Acid (Nexletol), 1 TAB PO DAILY, (Reported) Dutasteride (Dutasteride), 1 CAP PO DAILY, (Reported) Empagliflozin (Jardiance), 1 TAB PO DAILY, (Reported) Fluticasone Propionate (Fluticasone Propionate), 2 SPRAYS BOTHNARES DAILY, (Reported) Glimepiride (Glimepiride), 1 TAB PO BID, (Reported) Hydrocodone Bit/Acetaminophen (Hydrocodon-Acetaminophn 10-325 tablet), 1 TAB PO BID, (Reported) Metformin Hcl* (Metformin ER*), 2 TAB PO BID, (Reported) Metoprolol Tartrate (Metoprolol Tartrate), 1 TAB PO BID, (Reported) Nitroglycerin (Nitrostat), 1 TAB SL UD, (Reported) Prazosin Hcl (Prazosin Hcl), 2 CAPSULE PO DAILY, (Reported) Prednisone (predniSONE tablet), 1 TAB PO DAILY, (Reported) Venlafaxine HCl (Venlafaxine HCl ER), 1 TAB PO DAILY, (Reported) Scheduled PRN Clonazepam (Clonazepam), 1 MG PO TID PRN for ., (Reported) Discontinued Medications Hydrocodone Bit/Acetaminophen (Hydrocodone-Apap 10-325 Tablet), 1 TAB PO QID PRN PRN for pain Discontinued Reason: patient no longer taking Lactobacillus Rhamnosus (Culturelle), 1 EACH PO BID Discontinued Reason: patient no longer taking Tamsulosin Hcl (Tamsulosin Hcl), 2 TAB PO DAILY, (Reported) Discontinued Reason: patient no longer taking Past Medical History Past Medical History: Coronary Artery Disease, High Cholesterol, Hypertension, Myocardial Infarction, *GI/HEPATOBILIARY*, GI Bleed, Inflammatory Bowel Dz, Anemia, Bipolar Past Surgical History: angioplasty Patient History: FH: atrial fibrillation MOTHER, , Age: 93, Cause: Natural FH: heart disease FATHER, , Age: 80, Cause: Dementia Other Past Family History: diabetes Smoking Status: Former smoker Alcohol Use: None Drug Use: none Lives with: Spouse Lives In: Home Occupation: disabled Physical Exam Physical Exam Vital Signs: Temperature: 98.5, Source: Oral, Heart Rate: 66, Respiratory Rate: 10, BP: 131/77, Pulse Oximetry: 97, Weight: 71.360 Oxygen Flow Rate: 0 Physical Exam well-appearing no acute distress Moist mucous membranes no JVD Clear to auscultation bilaterally no wheezing rhonchi or rales no murmur Soft nontender Lower extremity no edema Awake alert oriented normal speech 5/5 bilateral hip flexor knee extension dorsiflexion plantar flexion intact se nsation Progress Results/Orders Reviewed/noted all lab results: Yes Results/Orders Orders - KORTNEY GALEAS MD * (A) Ramos- Protocol * Q12H@07,19 (11/27/24 10:45) Ct Abdomen Pelvis (11/27/24 13:29) Completed Orders - KORTNEY GALEAS MD Morphine 4mg/Ml Inj. (Morphine Inj.) (11/27/24 10:35) BMP (11/27/24 10:35) Cbc/Diff (11/27/24 10:35) Lidocaine 2% Jelly 11ml Syr (Glydo-Lidoc (11/27/24 10:45) Ct Abdomen Pelvis (11/27/24 13:29) Ua W/Microscopic, Cult If Ind (11/27/24 12:04) Iohexol 300mg/Ml 100ml Inj. (Omnipaque-3 (11/27/24 13:02) Morphine 4mg/Ml Inj. (Morphine Inj.) (11/27/24 13:50) Medications Received in ER Medications (Trade) Dose Ordered Sig/Dylon Route PRN Reason Start Time Stop Time Status Last Admin Dose Admin (morphine inj.) 4 mg ONCE ONCE IV 11/27/24 10:35 11/27/24 10:36 DC 11/27/24 11:16 4 MG (GLYDO-Lidocaine 2% Topical Jelly 11mL syringe) 1 applic ONCE ONCE TOP 11/27/24 10:45 11/27/24 10:47 DC 11/27/24 11:18 1 APPLIC (morphine inj.) 4 mg ONCE ONCE IV 11/27/24 13:50 11/27/24 13:52 DC 11/27/24 13:55 4 MG Vital Signs 11/27/24 11/27/24 11/27/24 11/27/24 10:23 11:13 12:56 14:09 Temp 98.5 Pulse 70 69 57 66 Resp 20 18 17 10 B/P (MAP) 146/88 101/83 (89) 178/93 (121) 131/77 (95) Pulse Ox 97 95 96 97 O2 Flow Rate 0 0 0 0 Laboratory Tests Test 11/27/24 10:44 11/27/24 12:04 White Blood Count 9.4 Red Blood Count 4.26 L Hemoglobin 10.1 L Hematocrit 31.4 L Mean Corpuscular Volume 73.7 L Mean Corpuscular Hemoglobin 23.8 L Mean Corpuscular Hemoglobin Concent 32.3 L Red Cell Distribution Width 19.9 H Platelet Count 366 Mean Platelet Volume 7.7 Neutrophils (%) (Auto) 76.6 H Lymphocytes (%) (Auto) 17.6 L Monocytes (%) (Auto) 4.4 Eosinophils (%) (Auto) 0.6 Basophils (%) (Auto) 0.8 Neutrophils # (Auto) 7.2 Lymphocytes # (Auto) 1.7 Monocytes # (Auto) 0.4 Eosinophils # (Auto) 0.1 Basophils # (Auto) 0.1 CBC Comment Sodium Level 135 Potassium Level 4.9 Chloride Level 101 Carbon Dioxide Level 27.9 Anion Gap 6 L Blood Urea Nitrogen 18 Creatinine 1.14 H Estimated GFR/1.73 m2 63 BUN/Creatinine Ratio 15.8 Glucose Level 325 H Calcium Level 8.6 Albumin 3.1 L Chemistry Comments Urine Specimen Description Ramos cath Urine Color Dark yellow Urine Clarity Clear Urine pH 7.0 Urine Specific [place] 1.010 Urine Protein Trace Urine Glucose (UA) >=1000 H Urine Ketones Negative Urine Occult Blood Negative Urine Nitrite Negative Urine Bilirubin Negative Urine Urobilinogen 1.0 Urine Leukocyte Esterase Negative Urine RBC 0-2 Urine WBC 0-4 Urine Squamous Epithelial Cells None seen Urine Bacteria None seen Urine Mucus None seen Urine Culture Indicated Not ind Volume Urine Centrifuged 10 ml Urine Comment EKG/XRAY/CT/US/VASC/MRI CT : Impression CT abdomen independently interpreted myself shows no perforation or free air Medical Decision Making Additional information obtaine: old records Findings Discharge summary September 2024 pyelonephritis CAD status post CABG Crohn's disease Differential Diagnosis Back pain differential Departure Disposition: ADMITTED INPATIENT Admitted to Inpatient Unit: to hospitalist Impression: Primary Impression: Back pain Qualified Codes: M54.50 - Low back pain, unspecified; G89.29 - Other chronic pain Additional Impression: Urinary retention Referrals: NO PRIMARY CARE PROVIDER (PCP) Signature Scribe Signature: na Attestation: KORTNEY Reddy MD Nov 27, 2024 14:11
[2024-11-27] MEDS ORDERED: magnesium sulf-water 4G/100mL 100 ML IV PRN (14:55)
[2024-11-27] MEDS ORDERED: ondansetron 4mg rapidly disintigrating tab PO PRN (14:55)
[2024-11-27] MEDS ORDERED: magnesium hydroxide 30ml (MOM) UD suspension PO PRN (14:55)
[2024-11-27] MEDS ORDERED: magnesium sulf-water 2g/50mL 50 ML IV PRN (14:55)
[2024-11-27] MEDS ORDERED: HYDROcodone/acetaminophen 5mg/325mg tablet PO PRN (14:55)
[2024-11-27] MEDS ORDERED: morphine 4 MG/ML inj SYRINge IV PRN (14:55)
[2024-11-27] MEDS ORDERED: ondansetron/PF 4mg/2ml inj IV PRN (14:55)
[2024-11-27] MEDS ORDERED: hydrALAZINE 20mg/ml inj. IV PRN (14:55)
[2024-11-27] MEDS ORDERED: mag hydrox/Alum hydrox/simeth 30ml oral suspension PO PRN (14:55)
[2024-11-27] MEDS ORDERED: potassium Cl 20 mEq SR tablet PO PRN ×2 (14:55)
[2024-11-27] MEDS ORDERED: potassium Cl 40MEQ/1/2NS 520ml 520 ML IV PRN (14:55)
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
[2024-11-27] MEDS ORDERED: DEXTROSE 15 GM of carb/4 tabs (each vial/BOTTLE has 4 tablets) PO PRN ×2 (15:10)
[2024-11-27] MEDS ORDERED: dextrose 50%-water 50ml dispensing syringe IV PRN ×2 (15:10)
[2024-11-27] MEDS ORDERED: glucagon, human recombinant 1mg kit SUBCUT PRN (15:10)
[2024-11-27] MEDS: normal saline 1000ml 1,000 ML IV SCH (15:28)
[2024-11-27] MEDS: INSULIN LISPRO 100 UNIT/ML INSULN.PEN MULTI-DOSE SQ SCH (17:43)
[2024-11-27 19:30] VITALS: BP 137/77; PULSE 89; RESP 18; TEMP 97.8; O2SAT 97
[2024-11-27] MEDS: K and/or MAG REPLACEMENT MC SCH (19:52)
[2024-11-27 20:00] VITALS: RESP 18; O2SAT 97
[2024-11-27] MEDS: docusate sod 100mg capsule PO SCH (20:00)
[2024-11-27] MEDS: heparin, porcine 5000 units/ml vial SQ SCH (20:01)
[2024-11-27] MEDS: HYDROcodone/acetaminophen 10/325mg tab PO PRN (20:03)
[2024-11-27] MEDS: morphine 4 MG/ML inj SYRINge IV PRN (21:52)
[2024-11-27 22:00] VITALS: BP 126/89; PULSE 71; RESP 16; TEMP 97.5; O2SAT 95
[2024-11-28] VITALS (8 sets, daily range): BP systolic 108–160; BP diastolic 58–88; PULSE 68–120; RESP 16–18; TEMP 97–98.1; O2SAT 94–98
[2024-11-28 06:21] LABS: MEAN PLATELET VOLUME 8.1 FL (7.4-10.4); RED CELL DISTRIBUTION WIDTH 19.7 % (11.5-14.5)
[2024-11-28 06:22] LABS: % IRON SATURATION 11 % (11-46)
[2024-11-28 06:28] LABS: CHOL/HDL RATIO 4.6 (0.00-4.99); CREATININE 0.92 MG/DL (0.60-1.10); LDL CHOLESTEROL 148 MG/DL (50-100); TOTAL CARBON DIOXIDE 25.4 MMOL/L (24-32); eCRCL 74 ML/MIN; eGFR 81 ML/MIN
[2024-11-28] MEDS ORDERED: mineral oil 133ml enema RC PRN (07:30)
[2024-11-28] MEDS: aspirin 81mg, enteric-coated 1 TAB TABLET.DR PO SCH (08:05)
[2024-11-28] MEDS: venlafaxine XR 75mg capsule (Q24H) PO SCH (08:10)
[2024-11-28] MEDS: EMPAGLIFLOZIN 25 MG TABLET PO SCH (08:11)
[2024-11-28] MEDS: NEXLETOL PO SCH (10:44)
[2024-11-28] MEDS ORDERED: metoprolol tartrate 1mg/ml inj IV SCH (11:00)
[2024-11-28] MEDS ORDERED: metoprolol tartrate 1mg/ml inj IV ONE (11:05)
[2024-11-28] MEDS: metoprolol tartrate 1mg/ml inj IV ONE (11:25)
--- NOTE | 2024-11-28 11:25 | ELECTROCARDIOGRAPH REPORT ---
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 WANDY Augustine Measurements Intervals [place] Rate: 134 P: 79 [place]: 140 QRS: 79 QRSD: 92 T: 269 QT: 272 QTc: 406 Interpretive Statements Sinus tachycardia Repol abnrm suggests ischemia, diffuse leads Electronically Signed On 11-28-2024 18:04:[address] WANDY Augustine Please click the below link to view image of tracing.
[2024-11-28] MEDS: normal saline 500ml IV soln 500 ML IV ONE (11:46)
[2024-11-28] MEDS: ketorolac trometh 30MG/ML vial 30 MG/ML VIAL IV ONE (11:46)
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
[2024-11-28] MEDS: insulin glargine (Lantus) pen - multi-dose SQ SCH (21:28)
[2024-11-29 06:23] LABS: MEAN PLATELET VOLUME 8.1 FL (7.4-10.4); RED CELL DISTRIBUTION WIDTH 19.1 % (11.5-14.5)
[2024-11-29 06:45] LABS: CREATININE 1.02 MG/DL (0.60-1.10); TOTAL CARBON DIOXIDE 24.5 MMOL/L (24-32); eCRCL 67 ML/MIN; eGFR 72 ML/MIN
[2024-11-29 06:56] VITALS: BP 151/73; PULSE 76; RESP 16; TEMP 97.6; O2SAT 96
[2024-11-29 07:22] LABS: PLATELET ESTIMATE NORMAL
[2024-11-29 07:23] LABS: ELLIPTOCYTES FEW
[2024-11-29 08:00] VITALS: RESP 16
[2024-11-29] MEDS: pantoprazole 40mg Tablet.DR PO SCH (08:24)
[2024-11-29 08:27] VITALS: BP_SYST 151; PULSE 76
[2024-11-29] MEDS: lactose-reduced food (Ensure Enlive) - 237ml bottle PO SCH (08:28)
[2024-11-29 09:40] VITALS: RESP 16
--- NOTE | 2024-11-29 11:19 | RADIOLOGY REPORT ---
PROCEDURE: MR MRI LUMBAR SPINE Indication: r/o cauda equina COMPARISON: CT CT LUMBAR SPINE on DOS: 10/18/23 TECHNIQUE: Multiplanar multisequence images of the the lumbar spine are obtained. FINDINGS: For the purpose of this examination, there are 5 lumbar vertebral body types counting from the lumbosacral junction. The lumbar vertebral body heights are maintained. Moderate multilevel disc space narrowing and desiccation. No abnormal marrow edema. Conus terminates at the L1 level. Alignment preserved. L1-2: Tiny disc protrusion. Mild facet and flavum hypertrophy. No spinal canal, neural foraminal stenosis. L2-3: 2 mm disc protrusion. Nfzd-kb-ugnrqmys facet and flavum hypertrophy. No spinal canal stenosis. Mild bilateral neural foraminal stenosis. L3-4: Tiny disc protrusion. Moderate facet and flavum hypertrophy. No spinal canal stenosis. Hrgy-jx-bfvedxbn right and mild left neural foraminal stenosis. L4-5: Tiny disc protrusion. Rpwk-jk-fnppvkuj facet and flavum hypertrophy. No spinal canal stenosis. Fscb-xf-hpgeiqcv bilateral neural foraminal stenosis. L5-S1: 3 mm disc protrusion with central annular tear. Rbtd-sq-xkiuuewd facet and flavum hypertrophy. No spinal canal stenosis. Moderate to severe bilateral neural foraminal stenosis. IMPRESSION: Moderate lumbar degenerative disc disease. 3 mm disc protrusion L5-S1 with central annular tear. Moderate to severe neural foraminal stenosis L5-S1. Tsiu-eu-eurjmotx neural foraminal stenosis at L2-3, L3-4 and L4-5 as described. No high-grade spinal canal stenosis.
[2024-11-29] MEDS ORDERED: LOSA50TA64 PO (11:31)
[2024-11-29] MEDS ORDERED: EZET10TA80 PO (11:31)
[2024-11-29] MEDS ORDERED: FER325T PO (11:31)
[2024-11-29] MEDS ORDERED: FENO48TA10 PO (11:31)
--- NOTE | 2024-11-29 11:36 | RADIOLOGY REPORT ---
INDICATION: AP OF ENTIRE SPINE FOR HARDWARE TECHNIQUE: AP view of the cervical, thoracic, and lumbosacral spine are submitted for review. The lower extreme of the sacrum is excluded from view. COMPARISON: MR MRI LUMBAR SPINE on DOS: 11/29/24, CT CT LUMBAR SPINE on DOS: 10/18/23, DI LUMBAR SPINE LIMITED on DOS: 10/02/23 FINDINGS: There is no malalignment of the lateral masses. There are sternotomy wires. There are surgical clips in the mediastinum. There is no metallic hardware in the visualized spine. There is endplate hypertrophy at L2-L3 and L3- L4. No fracture of the visualized spine is identified within the limitations of this single view. IMPRESSION: No metallic hardware in the visualized spine.
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
[2024-11-29] MEDS ORDERED: DUTA0.5C40 PO (14:51)
[2024-11-29] MEDS ORDERED: TAMS-55 PO (14:51)
[2024-11-29] MEDS ORDERED: HYDR-3965 PO (14:51)
== END 2024-11-29 16:33 | disposition home health service (06) | DRG 552 ==
LOC: ER 10:19 → ED HOLD 14:57 → SUR 3N 19:35
PROVIDERS: ADMIT Nurse Practitioner Family; ATTEND Nurse Practitioner Family
PROC: BW211ZZ Computerized Tomography (CT Scan) of Abdomen and Pelvis using Low Osmolar Contrast (ICD-10-PCS; principal; 2024-11-27)
PROC: 0T9B70Z Drainage of Bladder with Drainage Device, Via Natural or Artificial Opening (ICD-10-PCS; 2024-11-27)
DX: M48.07 Spinal stenosis, lumbosacral region (principal); N17.9 Acute kidney failure, unspecified; F03.A3 Unspecified dementia, mild, with mood disturbance; K50.90 Crohn's disease, unspecified, without complications; G89.29 Other chronic pain; R33.9 Retention of urine, unspecified; E11.9 Type 2 diabetes mellitus without complications; F12.90 Cannabis use, unspecified, uncomplicated; D50.9 Iron deficiency anemia, unspecified; M54.32 Sciatica, left side; M54.31 Sciatica, right side; M51.26 Other intervertebral disc displacement, lumbar region; M51.27 Other intervertebral disc displacement, lumbosacral region; I10 Essential (primary) hypertension; E78.00 Pure hypercholesterolemia, unspecified; K90.0 Celiac disease; F32.9 Major depressive disorder, single episode, unspecified; I25.10 Atherosclerotic heart disease of native coronary artery without angina pectoris; I48.91 Unspecified atrial fibrillation; N40.1 Benign prostatic hyperplasia with lower urinary tract symptoms; R33.8 Other retention of urine; Z96.611 Presence of right artificial shoulder joint; J44.9 Chronic obstructive pulmonary disease, unspecified; Z88.8 Allergy status to other drugs, medicaments and biological substances; Z79.82 Long term (current) use of aspirin; Z79.84 Long term (current) use of oral hypoglycemic drugs; Z79.899 Other long term (current) drug therapy; Z87.891 Personal history of nicotine dependence; Z86.73 Personal history of transient ischemic attack (TIA), and cerebral infarction without residual deficits; Z95.1 Presence of aortocoronary bypass graft
CPT/HCPCS: 36415; 51702; 72020; 72148; 74177; 80048; 80053; 80061; 81001; 82728; 82948; 83036; 83540; 83550; 83735; 85008; 85025; 87081; 93005; 96374; 96375; 97161; 97530; 99285; A4314; A4358; A5200; G0378; J1644; J1815; J1885; J2270; J7030; J7040; J7512; Q9967

== ENCOUNTER 2024-12-01 17:18 | Emergency (ER) | payer MEDICARE, MEDICAID ==
[~2024-12-01] VITALS: Ht 182.9 cm; Wt 72.2 kg
[~2024-12-01 17:18] MED LIST changes: +BEMP180T PO; -DUTA0.5C36 PO; +DUTA0.5C40 PO; +EMPA25TA PO; +EZET10TA80 PO; +FENO48TA10 PO; +FER325T PO; +HYDR-3965 PO; -HYDR-3972 PO; -HYDR-3973 PO; -LACT1CAP26 PO; +LOSA50TA64 PO; -PRAZ1CAP5 PO; +TAMS-55 PO; -TAMS0.4C32 PO; +VENL150T3 PO
[2024-12-01 17:22] VITALS: TEMP 97.8
--- NOTE | 2024-12-01 17:46 | Physician Documentation ---
History of Present Illness ~ Chief Complaint: Catheter Problem Stated Complaint: CATHETER COMPLICATIONS Time Seen by MD: 17:36 Primary Medical Doctor: NONE HPI 69-year-old male with an Indwelling Ramos catheter investigation. Reports that he was stepping out in the shower and he feels that he may have dislodged the catheter because urine was coming from penis also. Recently hospitalized at [facility] and discharged home with surgical follow up for suspected prostate lesion. Otherwise doing well not currently taking antibiotics. Ramos appears to be draining well. Medication Reconciliation Allergies: Coded Allergies: atorvastatin (Verified Allergy, Unknown, 12/01/24) pitavastatin (Verified Allergy, Unknown, 12/01/24) pregabalin (Verified Allergy, Unknown, suicide ideations, rash, 12/01/24) rosuvastatin (Verified Allergy, Unknown, 12/01/24) simvastatin (Verified Allergy, Unknown, 12/01/24) gluten (Unverified Adverse Reaction, Unknown, 12/01/24) Celiacs per MD note Scheduled Aspirin (Aspir 81), 2 TABLET PO DAILY, (Reported) Bempedoic Acid (Nexletol), 1 TAB PO DAILY, (Reported) Dutasteride* (Avodart*), 1 CAP PO DAILY Empagliflozin (Jardiance), 1 TAB PO DAILY, (Reported) Ezetimibe (Ezetimibe), 10 MG PO DAILY Fenofibrate Nanocrystallized (Fenofibrate), 48 MG PO DAILY@0830 Ferrous Sulfate (Ferrous Sulfate), 325 MG PO DAILY Fluticasone Propionate (Fluticasone Propionate), 2 SPRAYS BOTHNARES DAILY, (Reported) Glimepiride (Glimepiride), 1 TAB PO BID, (Reported) Losartan Potassium (Losartan Potassium), 50 MG PO DAILY Metformin Hcl* (Metformin ER*), 2 TAB PO BID, (Reported) Metoprolol Tartrate (Metoprolol Tartrate), 1 TAB PO BID, (Reported) Nitroglycerin (Nitrostat), 1 TAB SL UD, (Reported) Prednisone (predniSONE tablet), 1 TAB PO DAILY, (Reported) Tamsulosin Hcl* (Flomax*), 1 CAP PO DAILY Venlafaxine HCl (Venlafaxine HCl ER), 1 TAB PO DAILY, (Reported) Scheduled PRN Clonazepam (Clonazepam), 1 MG PO TID PRN for ., (Reported) Hydrocodone Bit/Acetaminophen 5/325 MG ([place] 5/325 MG), 1 TAB PO Q6H PRN for moderate or severe pain Discontinued Medications Hydrocodone Bit/Acetaminophen (Hydrocodone-Apap 10-325 Tablet), 1 TAB PO QID PRN PRN for pain Discontinued Reason: patient no longer taking Lactobacillus Rhamnosus (Culturelle), 1 EACH PO BID Discontinued Reason: patient no longer taking Tamsulosin Hcl (Tamsulosin Hcl), 2 TAB PO DAILY, (Reported) Discontinued Reason: patient no longer taking Past Medical History Past Medical History: Coronary Artery Disease, High Cholesterol, Hypertension, Myocardial Infarction, *GI/HEPATOBILIARY*, GI Bleed, Inflammatory Bowel Dz, Anemia, Bipolar Past Surgical History: angioplasty Patient History: FH: atrial fibrillation MOTHER, , Age: 93, Cause: Natural FH: heart disease FATHER, , Age: 80, Cause: Dementia Other Past Family History: diabetes Alcohol Use: None Drug Use: none Lives with: Spouse Lives In: Home Occupation: disabled Physical Exam Vital Signs: RN Vital Signs have been reviewed: Yes, Temperature: 97.8, Source: Oral, Heart Rate: 89, Respiratory Rate: 18, BP: 142/82, Pulse Oximetry: 96, Weight: 72.200 Oxygen Flow Rate: 0 General Appearance: alert, WD/WN Neck: normal inspection Respiratory: no respiratory distress Chest: no accessory muscle use Gastrointestinal: non-tender Prostate: other (N/A) Penile Discharge: none Glans: normal inspection Foreskin: normal inspection Shaft: normal inspection Testicle: normal inspection Genital Indwelling Ramos in place. No bleeding at the meatus. No lesions. 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 Ramos catheter is draining well. It was adjusted and read secured. Discharged to keep scheduled follow up. Urinary Diff Dx:Considerations: Include: Bladder outlet obstruc. Genital Diff Dx:Considerations: Include: UTI Departure Disposition: HOME / SELF CARE / HOMELESS Impression: Primary Impression: Ramos catheter problem Qualified Codes: T83.9XXA - Unspecified complication of genitourinary prosthetic device, implant and graft, initial encounter Discharge Instructions: Indwelling Urinary Catheter Care, Adult Additional Instructions: Please keep your scheduled follow up with your physician tomorrow. Your Ramos catheter has been adjusted and secured. Please return as needed. Thank you for visiting [facility] Referrals: NO PRIMARY CARE PROVIDER (PCP) Education Educated: Patient Educated regarding: diagnosis, treatment, prognosis, need for follow up (tomorrow with your schedules Surgeon) Signature Scribe Signature: . Attestation: . PETE HERNANDEZ PAC Dec 01, 2024 17:46
[2024-12-01 18:00] VITALS: BP 137/82; PULSE 90; RESP 20; O2SAT 98
== END 2024-12-01 18:09 | disposition home or self-care (01) ==
LOC: ER 17:19
DX: T83.9XXA Unspecified complication of genitourinary prosthetic device, implant and graft, initial encounter (principal); D64.9 Anemia, unspecified; I25.2 Old myocardial infarction; I25.10 Atherosclerotic heart disease of native coronary artery without angina pectoris; I10 Essential (primary) hypertension; F31.9 Bipolar disorder, unspecified; E78.00 Pure hypercholesterolemia, unspecified; Z88.8 Allergy status to other drugs, medicaments and biological substances; Z79.82 Long term (current) use of aspirin; Z79.899 Other long term (current) drug therapy; Y84.6 Urinary catheterization as the cause of abnormal reaction of the patient, or of later complication, without mention of misadventure at the time of the procedure
CPT/HCPCS: 99284; A5200

== ENCOUNTER 2024-12-08 14:41 | Emergency (ER) | payer MEDICARE, MEDICAID ==
[~2024-12-08] VITALS: Ht 182.9 cm; Wt 72.2 kg
[~2024-12-08 14:41] MED LIST changes: -HYDR-3965 PO
--- NOTE | 2024-12-08 14:55 | ELECTROCARDIOGRAPH REPORT ---
[facility] Test Date: 2024-12-08 Test Time: 14:51:43 Pat Name: HOSEA VARGHESE Department: [facility]- Patient ID: [id number] Room: Gender: M News Correspondent: : 1955 Requested By: VARINDER ALBA Order Number: [id number] Reading MD: Dr. Varinder Alba Measurements Intervals [place] Rate: 76 P: 78 NE: 159 QRS: 81 QRSD: 105 T: 83 QT: 428 QTc: 482 Interpretive Statements Sinus rhythm Borderline right axis deviation Borderline prolonged QT interval Electronically Signed On 12-08-2024 19:25:[address] Varinder Alba Please click the below link to view image of tracing.
[2024-12-08 15:06] LABS: MEAN PLATELET VOLUME 7.8 FL (7.4-10.4); RED CELL DISTRIBUTION WIDTH 20.1 % (11.5-14.5)
[2024-12-08 15:36] LABS: CREATININE 1.27 MG/DL (0.60-1.10); PRO BRAIN NATRIURETIC PEPTIDE 736 PG/ML (0-125); TOTAL CARBON DIOXIDE 21.8 MMOL/L (24-32); eCRCL 54 ML/MIN; eGFR 56 ML/MIN
[2024-12-08 15:39] LABS: PLATELET ESTIMATE NORMAL
--- NOTE | 2024-12-08 19:45 | Physician Documentation ---
History of Present Illness ~ General Chief Complaint: Multiple Medical Complaints Stated Complaint: SYNCOPE Time Seen by MD: 18:05 Primary Medical Doctor: NONE Source: patient Mode of Arrival: POV, Ambulatory Exam Limitations: no limitations History of Present Illness Initial Comments Mr. Dupree is a 69 y/o male who presents to the ED with a request to have his morales catheter changed out. He states that he dog hopped up on the bed last night and bit the bag. He was unaware of this until he woke up later in the night to realize he was lying in wet sheets. He is without complaints just requesting to have his catheter changed out. He has an appointment at [facility] with a Neuropsychiatrist and does not want to miss his appointment. He states that when he realized his sheets were wet, he jumped out of bed and became lightheaded and eazed himself down to the floor. He denies hitting his head. He states that once on the floor, "everything went black." He reports that this happens occasionally and is not new. He denies a MERAZ or acute visual changes. No neck pain or stiffness. No focal weakness. This is being evaluated and he states that he is fine and just wants his catheter changed. Medication Reconciliation Allergies: Coded Allergies: atorvastatin (Verified Allergy, Unknown, 12/01/24) pitavastatin (Verified Allergy, Unknown, 12/01/24) pregabalin (Verified Allergy, Unknown, suicide ideations, rash, 12/01/24) rosuvastatin (Verified Allergy, Unknown, 12/01/24) simvastatin (Verified Allergy, Unknown, 12/01/24) gluten (Unverified Adverse Reaction, Unknown, 12/01/24) Celiacs per MD note Scheduled Aspirin (Aspir 81), 2 TABLET PO DAILY, (Reported) Bempedoic Acid (Nexletol), 1 TAB PO DAILY, (Reported) Dutasteride* (Avodart*), 1 CAP PO DAILY Empagliflozin (Jardiance), 1 TAB PO DAILY, (Reported) Ezetimibe (Ezetimibe), 10 MG PO DAILY Fenofibrate Nanocrystallized (Fenofibrate), 48 MG PO DAILY@0830 Ferrous Sulfate (Ferrous Sulfate), 325 MG PO DAILY Fluticasone Propionate (Fluticasone Propionate), 2 SPRAYS BOTHNARES DAILY, (Reported) Glimepiride (Glimepiride), 1 TAB PO BID, (Reported) Losartan Potassium (Losartan Potassium), 50 MG PO DAILY Metformin Hcl* (Metformin ER*), 2 TAB PO BID, (Reported) Metoprolol Tartrate (Metoprolol Tartrate), 1 TAB PO BID, (Reported) Nitroglycerin (Nitrostat), 1 TAB SL UD, (Reported) Prednisone (predniSONE tablet), 1 TAB PO DAILY, (Reported) Tamsulosin Hcl* (Flomax*), 1 CAP PO DAILY Venlafaxine HCl (Venlafaxine HCl ER), 1 TAB PO DAILY, (Reported) Scheduled PRN Clonazepam (Clonazepam), 1 MG PO TID PRN for ., (Reported) Discontinued Medications Hydrocodone Bit/Acetaminophen 5/325 MG ([place] 5/325 MG), 1 TAB PO Q6H PRN for moderate or severe pain Discontinued Reason: Auto Discontinued Past Medical History Past Medical History: Coronary Artery Disease, High Cholesterol, Hypertension, Myocardial Infarction, *GI/HEPATOBILIARY*, GI Bleed, Inflammatory Bowel Dz, Anemia, Bipolar Past Surgical History: angioplasty Patient History: FH: atrial fibrillation MOTHER, , Age: 93, Cause: Natural FH: heart disease FATHER, , Age: 80, Cause: Dementia Other Past Family History: diabetes Alcohol Use: None Drug Use: none Lives with: Spouse Lives In: Home Occupation: disabled Review of Systems All Other Systems at this time: Reviewed and Negative Physical Exam Physical Exam Vital Signs: RN Vital Signs have been reviewed: Yes, Temperature: 98.4, Source: Oral, Heart Rate: 79, Respiratory Rate: 13, BP: 103/77, Pulse Oximetry: 99, Weight: 72.200 Oxygen Flow Rate: 0 Physical Exam GEN: Alert and oriented and in NAD. HEENT: NC/AT. PERRLA. No scleral icterus. MMM. No oral lesions. NECK: Supple. No JVD. CHEST: RRR. No M/G/T. LUNGS: CTA B. No W/R/R. ABD: Soft. NTND. + BS. No rebounding or guarding. BACK: No CVA TTP. EXT: No c/c/e. NEURO: Alert and oriented x 4. Cooperative. Sensorimotor intact x 4 extremities. Progress Results/Orders Results/Orders Vital Signs 12/08/24 12/08/24 12/08/24 12/08/24 14:43 15:16 18:42 19:02 Temp 98.4 Pulse 79 79 Resp 18 13 B/P (MAP) 121/77 103/77 (86) Pulse Ox 99 99 O2 Flow Rate 0 0 Laboratory Tests Test 12/08/24 14:54 White Blood Count 11.0 Red Blood Count 4.48 L Hemoglobin 11.0 L Hematocrit 33.9 L Mean Corpuscular Volume 75.6 L Mean Corpuscular Hemoglobin 24.6 L Mean Corpuscular Hemoglobin Concent 32.5 L Red Cell Distribution Width 20.1 H Platelet Count 392 Mean Platelet Volume 7.8 Neutrophils (%) (Auto) 79.0 H Lymphocytes (%) (Auto) 16.9 L Monocytes (%) (Auto) 3.0 Eosinophils (%) (Auto) 0.4 Basophils (%) (Auto) 0.7 Neutrophils # (Auto) 8.7 H Lymphocytes # (Auto) 1.9 Monocytes # (Auto) 0.3 Eosinophils # (Auto) 0.0 Basophils # (Auto) 0.1 CBC Comment Platelet Estimate Normal Red Blood Cell Morphology Perf Hypochromasia 1+ Poikilocytosis 1+ Basophilic Stippling Anisocytosis 3+ Sodium Level 131 L Potassium Level 4.9 Chloride Level 97 L Carbon Dioxide Level 21.8 L Anion Gap 12 Blood Urea Nitrogen 25 H Creatinine 1.27 H Estimated GFR/1.73 m2 56 BUN/Creatinine Ratio 19.7 Glucose Level 358 H Calcium Level 8.8 Pro-B-Type Natriuretic Peptide 736 H Albumin 3.1 L Chemistry Comments Medical Decision Making Additional information obtaine: N/A Findings While here in the ED, he remained hemodynamically normal with ABC's intact and in NAD. He is afebrile and nontoxic. Clear urine in morales. EKG without signs suggestive of acute myocardial injury or ischemia. Neuro at baseline. Richard exchanged here in the ED without difficulty/complication. We discussed him being admitted to further monitor him due to report of everything going black once on the floor, but he declined to be admitted. He states that his of over 40 years just filed for divorce. He also just loss his mother and son, and he has the appointment in the morning at [facility] and has paid over $1,000 for the trip and does not want to cancel/reschedule. He was given follow-up and return instructions. He voiced understanding and agreement with d/c instructions. Differential Diagnosis Morales catheter change Departure Disposition: HOME / SELF CARE / HOMELESS Impression: Primary Impression: Morales catheter problem Condition: Improved Referrals: NO PRIMARY CARE PROVIDER (PCP) Comments Follow-up with your family physician and return to the Emergency Department if there are any additional concerns. Education Educated: Patient Educated regarding: diagnosis, treatment ACF Form Admit Criteria Met or Not Met: NO Signature Scribe Signature: N/A Attestation: N/A MARIANNE OSUNA MD Dec 08, 2024 19:45
[2024-12-08 20:02] VITALS: BP 142/71; PULSE 79; RESP 20; TEMP 98.4; O2SAT 97
== END 2024-12-08 20:04 | disposition home or self-care (01) ==
LOC: ER 14:41
DX: T83.9XXA Unspecified complication of genitourinary prosthetic device, implant and graft, initial encounter (principal); I25.10 Atherosclerotic heart disease of native coronary artery without angina pectoris; I10 Essential (primary) hypertension; F31.9 Bipolar disorder, unspecified; D64.9 Anemia, unspecified; E78.00 Pure hypercholesterolemia, unspecified; I25.2 Old myocardial infarction; Z88.8 Allergy status to other drugs, medicaments and biological substances; Z79.82 Long term (current) use of aspirin; Z79.899 Other long term (current) drug therapy; Z79.84 Long term (current) use of oral hypoglycemic drugs
CPT/HCPCS: 36415; 80048; 83880; 85008; 85025; 93005; 99284; A4314

== ENCOUNTER 2025-01-16 10:33 | Inpatient (IN) | payer MEDICARE, MEDICAID ==
[~2025-01-16] VITALS: Ht 182.9 cm; Wt 68.0 kg
[~2025-01-16 10:33] MED LIST changes: -DUTA0.5C40 PO; -TAMS-55 PO
--- NOTE | 2025-01-16 10:52 | ELECTROCARDIOGRAPH REPORT ---
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 WANDY Augustine Measurements Intervals [place] Rate: 76 P: 84 NE: 161 QRS: 84 QRSD: 103 T: 72 QT: 432 QTc: 486 Interpretive Statements Sinus rhythm Borderline right axis deviation Borderline prolonged QT interval Electronically Signed On 01-17-2025 19:21:[address] WANDY Augustine Please click the below link to view image of tracing.
[2025-01-16 11:13] LABS: MEAN PLATELET VOLUME 7.8 FL (7.4-10.4); RED CELL DISTRIBUTION WIDTH 17.8 % (11.5-14.5)
--- NOTE | 2025-01-16 11:16 | RADIOLOGY REPORT ---
CHEST RADIOGRAPH Indication: CP Technique: Single frontal view of the chest was obtained COMPARISON: DI CHEST,SINGLE VIEW on DOS: 09/22/24, DI CHEST,SINGLE VIEW on DOS: 07/08/24, DI CHEST,SINGLE VIEW on DOS: 07/06/24, CT CTA CHEST PE W/ IV CONTRAST on DOS: 06/27/24, DI CHEST,SINGLE VIEW on DOS: 06/27/24 FINDINGS: Lines and Tubes: Median sternotomy Lungs: Clear Pleura: No effusion. No pneumothorax. Cardiomediastinal contours: Unremarkable Bones: Unremarkable IMPRESSION: No acute disease.
--- NOTE | 2025-01-16 11:25 | Physician Documentation ---
Addendum CHIEF COMPLAINT/HPI: The patient is a 69-year-old male with a history of coronary artery disease and other vasculopathy is including carotid stenosis, previous stroke, previous myocardial infarction, balance issues with frequent falls leading to spinal and other musculoskeletal problems who had a fall last night which was unwitnessed as the patient currently lives alone. He is on multiple antihypertensives, clonazepam and other medications and it is not clear how well he is able to track his intake. He comes in today complaining of head and neck pain in addition to left hip pain and chronic back pain. REVIEW OF SYSTEMS: Constitutional: Denies chills, fatigue, fever, weight gain or weight loss. HEENT: Headache after fall last night, especially on the left parietal area Respiratory: Denies cough, shortness of breath or wheezing. Cardiovascular: Denies chest pain, pain while walking (claudication), edema or palpitations. Gastrointestinal: Denies abdominal pain, blood in stool, constipation, diarrhea, heartburn, loss of appetite, nausea or vomiting. Genitourinary: Denies painful urination (dysuria), excessive amount of urine (polyuria) or urinary frequency. Metabolic/Endocrine: Denies cold intolerance, heat intolerance, excessive thirst (polydipsia) or excessive hunger (polyphagia). Neurological: Frequent syncope/near-syncope with frequent falls Psychiatric: Denies anxiety or depression. Integumentary: Denies breast discharge, breast lump, hives, mole change(s), ra sh or skin lesion. Musculoskeletal: Low back pain, left hip pain, left elbow pain, cervical pain Hematologic: Denies easily bleeding, easily bruises, lymphedema or issues with blood clots. Immunologic: Denies food allergies or seasonal allergies. PHYSICAL EXAMINATION: Vitals and nursing note reviewed. Constitutional: General: Patient is awake, alert, oriented x 4 in no acute distress and well appearing. Speech is clear and lucid. Appearance: Multiple ecchymoses, old and new. Patient is not ill-appearing, toxic-appearing or diaphoretic. HENT: Head: Normocephalic and no external evidence of trauma. Mouth: Mucous membranes are moist. Pharynx: Oropharynx is clear. Eyes: General: No scleral icterus. Extraocular Movements: Extraocular movements intact. Pupils: Pupils are equal, round, and reactive to light. Neck: Supple, no Kernig or Brudzinski sign. Cardiovascular: Rate and Rhythm: Normal rate and regular rhythm. Heart sounds: No murmur heard. Pulmonary: Effort: No respiratory distress. Breath sounds: No wheezing, rhonchi or rales. Abdominal: General: There is no distension. Palpations: There is no fluid wave, hepatomegaly or mass. Tenderness: There is no abdominal tenderness. There is no guarding. Musculoskeletal: General: Left hip and low back pain. Skin: Coloration: Skin is not jaundiced. Findings: No erythema or rash. Neurological: Mental Status: Patient is alert. MEDICAL DECISION MAKING: Orthostatic vital signs were obtained. In the lying position the patient's systolic pressure was approximately 110. When he sat up on the gurney it dropped into the 80s and he became symptomatic. No attempt was made to stand him up. Departure Disposition: ADMITTED INPATIENT Impression: Primary Impression: Hypotension Additional Impression: Falls Condition: Stable DEVYN JOHNSON MD Jan 16, 2025 11:25
[2025-01-16 11:43] LABS: PRO BRAIN NATRIURETIC PEPTIDE 870 PG/ML (0-125); TOTAL CARBON DIOXIDE 25.3 MMOL/L (24-32)
[2025-01-16 11:49] LABS: CREATININE 1.31 MG/DL (0.60-1.10); eCRCL 50 ML/MIN
[2025-01-16 11:50] LABS: eGFR 54 ML/MIN
[2025-01-16] MEDS ORDERED: iohexol 300mg/ml 100ml inj. ONE (11:54)
--- NOTE | 2025-01-16 11:56 | RADIOLOGY REPORT ---
PROCEDURE: Left elbow radiographs. INDICATION: LEFT ELBOW PAIN TECHNIQUE: 3 views of the left elbow were obtained. COMPARISON: None. FINDINGS: There is no evidence of fracture or dislocation. Joint spaces are maintained. The soft tissues are unremarkable. IMPRESSION: 1. No fracture or dislocation.
[2025-01-16 12:09] LABS: INR 1.0 INR
[2025-01-16 12:16] LABS: CREATININE 1.15 MG/DL (0.60-1.10); TOTAL CARBON DIOXIDE 23.9 MMOL/L (24-32); eCRCL 57 ML/MIN; eGFR 63 ML/MIN
[2025-01-16 12:21] LABS: LACTIC SEPSIS 2.9 MMOL/L (0.4-2.0)
[2025-01-16 12:26] LABS: ETHANOL < 10 MG/DL (<10)
--- NOTE | 2025-01-16 13:09 | RADIOLOGY REPORT ---
EXAM: CT CT HEAD HISTORY: Trauma COMPARISON: CT CT HEAD on DOS: 06/15/24 TECHNIQUE: Noncontrast axial CT images of the head were performed. Sagittal and coronal reformatted images were obtained. This CT exam was performed using 1 or more of the following dose reduction techniques: Automated exposure control, adjustment of the mA and/or kv according to patient size, or the use of iterative reconstruction techniques. Radiation Dose: CTDI volume is 61.99 mGy. Dose-length product is 1166 mGy*cm FINDINGS: No intracranial hemorrhage, mass, midline shift, hydrocephalus, or evidence of acute large vessel infarct. There is mild global brain atrophy. There is mild decreased attenuation in the periventricular white matter. There is divergent optic gaze. There is bony thickening about the left maxillary sinus. There is a small mucous retention cyst in the caudal aspect of the left sphenoid sinus. The bilateral mastoid air cells and middle ear spaces are clear. No cranial fracture or scalp edema. There is left frontal supraorbital scalp scarring. IMPRESSION: 1. Mild global brain atrophy and chronic ischemic changes without evidence of acute intracranial process. 2. Mild left sphenoid sinus disease and evidence of old chronic left maxillary sinus disease.
--- NOTE | 2025-01-16 13:18 | RADIOLOGY REPORT ---
EXAM: CT CT CERVICAL SPINE INDICATION: Trauma TECHNIQUE: Non contrast axial images of the cervical spine have been obtained with coronal and sagittal reformatted images. CT scans at this facility use dose modulation, iterative reconstruction, and/or weight based dosing when appropriate to reduce radiation dose to as low as reasonably achievable. COMPARISON: None FINDINGS: ANATOMY: Cervical lordosis is maintained. VERTEBRAL BODIES: The vertebral bodies are normal in height and alignment. The dens is intact, the lateral masses of C1 are normally aligned, and the atlantodental interval is normal for age. Multilevel degenerative change with facet arthropathy. SPINAL CANAL: No significant spinal canal stenosis. INTERVERTEBRAL DISCS: No CT findings to suggest traumatic disc herniation or acute hematoma. SOFT TISSUES: There is no prevertebral soft tissue swelling. OTHER: The partially visualized lung apices are clear. Vascular calcifications. Paraseptal emphysema. IMPRESSION: 1. No acute cervical spine fracture or malalignment.
[2025-01-16 13:23] LABS: LEUKOCYTE ESTERASE ,URINE NEGATIVE (Neg); NITRITES, URINE NEGATIVE (Neg); OCCULT BLOOD,URINE NEGATIVE (Neg)
[2025-01-16 13:24] LABS: UA COLLECTION TYPE FOLEY CATH
[2025-01-16 13:28] LABS: INFLUENZA TYPE A ANTIGEN RAPID NEGATIVE (Negative); INFLUENZA TYPE B ANTIGEN RAPID NEGATIVE (Negative)
[2025-01-16 13:39] LABS: MUCUS STRANDS NONE SEEN /LPF (Neg); SQUAMOUS EPITHELIAL CELL,UR NONE SEEN /LPF (FEW); URINE AMPHETAMINE SCREEN NEGATIVE (Neg); URINE BARBITUATE SCREEN NEGATIVE (Neg); URINE BENZODIAZEPINES SCREEN NEGATIVE (Neg); URINE CANNABINOID SCREEN POSITIVE (Neg); URINE COCAINE SCREEN NEGATIVE (Neg); URINE METHADONE SCREEN NEGATIVE (Neg); URINE OPIATE SCREEN NEGATIVE (Neg); URINE PHENCYCLIDINE SCREEN NEGATIVE (Neg)
--- NOTE | 2025-01-16 14:26 | RADIOLOGY REPORT ---
CLINICAL INFORMATION: Trauma. TECHNIQUE: Axial CT images of the chest, abdomen, and pelvis were obtained after the uneventful administration of 100 mL of Omnipaque 350 IV contrast. Coronal and sagittal reformatted images were obtained, reviewed, and stored. All CT scans at this medical facility are performed using dose modulation techniques as appropriate to a performed exam including the following: Automated exposure control was utilized; adjustment of the MA and/or KV according to patient size; and use of iterative reconstruction technique. CTDIvol = 9.9 mGy DLP = 758.75 mGy-cm COMPARISON: DI CHEST,SINGLE VIEW on DOS: 01/16/25, CT CT ABDOMEN PELVIS W/ IV CONTRAST on DOS: 11/27/24, DI CHEST,SINGLE VIEW on DOS: 09/22/24 FINDINGS: CT CHEST: Aorta: No aneurysm or dissection. Mild atherosclerotic calcification. Cardiac: Heart size is within normal limits. Postsurgical changes of prior CABG. Mediastinum/chris: No mass or adenopathy. Lungs: No pneumothorax, pleural effusion, or focal consolidation. Mild dependent atelectasis. Pkyf-ri-qyneagpr emphysematous changes. 6 mm subsolid nodule in the right middle lobe adjacent to the right minor fissure (series 3, image 55). Pulmonary arteries: No gross abnormality. Chest wall: No mass or other abnormality. Bones: No acute fracture or suspicious intraosseous lesions. CT ABDOMEN/PELVIS: Liver: Hepatic steatosis. Biliary: No calcified gallstones or biliary ductal dilatation. Spleen: Unremarkable. Pancreas: Atrophy of the pancreatic tail. Adrenal glands: Unremarkable. No mass. Kidneys: No hydronephrosis. Small subcentimeter low-attenuation lesions in both kidneys are likely cysts, but too small to characterize. Aorta: Moderate atherosclerotic calcification. No abdominal aortic aneurysm or dissection. Retroperitoneum: No mass or lymphadenopathy. Bowel/mesentery: Nonspecific nondilated fluid-filled small bowel loops. No small bowel obstruction. No free air or free fluid. Appendix is not visualized. There is nonspecific liquid stool in the colon. Pelvic organs: Grossly unremarkable. Bladder: Unremarkable. No mass. Abdominal wall: No mass or hernia. Bones: No acute fracture or focal intraosseous lesion. There are chronic appearing deformities at the bilateral L1 transverse processes. IMPRESSION: 1. No acute traumatic abnormality identified in the chest, abdomen, or pelvis. 2. Nonspecific nondilated fluid-filled small bowel loops and liquid stool in the colon. Findings may be seen with ileus or enterocolitis in the appropriate clinical setting. No small bowel obstruction. 3. 6 mm subsolid pulmonary nodule in the right middle lobe adjacent to the minor fissure. Per fleischner society recommendations, 4 a single ground-glass nodule measuring greater than or equal to 6 mm, CT at 12 months is recommended. Then if persistent, CT every 2 years until 5 years. 4. Hepatic steatosis. 5. Additional findings as described above.
[2025-01-16 16:38] VITALS: BP 113/65; PULSE 70; RESP 18; TEMP 98; O2SAT 97
[2025-01-16] MEDS ORDERED: mag hydrox/Alum hydrox/simeth 30ml oral suspension PO PRN (17:30)
[2025-01-16] MEDS ORDERED: ondansetron/PF 4mg/2ml inj IV PRN (17:30)
[2025-01-16] MEDS ORDERED: potassium Cl 40MEQ/1/2NS 520ml 520 ML IV PRN (17:30)
[2025-01-16] MEDS ORDERED: magnesium sulf-water 2g/50mL 50 ML IV PRN (17:30)
[2025-01-16] MEDS ORDERED: magnesium sulf-water 4G/100mL 100 ML IV PRN (17:30)
[2025-01-16] MEDS ORDERED: potassium Cl 20 mEq SR tablet PO PRN (17:30)
[2025-01-16] MEDS ORDERED: HYDROcodone/acetaminophen 5mg/325mg tablet PO PRN (17:30)
[2025-01-16] MEDS ORDERED: magnesium Cl slow-release 64mg tablet PO PRN (17:30)
[2025-01-16 18:00] VITALS: BP 113/65; PULSE 74; RESP 15; TEMP 98; O2SAT 93
[2025-01-16] MEDS: HYDROcodone/acetaminophen 10/325mg tab PO PRN (18:10)
[2025-01-16 18:52] LABS: PRO BRAIN NATRIURETIC PEPTIDE 837 PG/ML (0-125)
[2025-01-16] MEDS ORDERED: glucagon, human recombinant 1mg kit SUBCUT PRN (19:25)
[2025-01-16] MEDS ORDERED: dextrose 50%-water 50ml dispensing syringe IV PRN ×2 (19:25)
[2025-01-16] MEDS ORDERED: DEXTROSE 15 GM of carb/4 tabs (each vial/BOTTLE has 4 tablets) PO PRN (19:25)
--- NOTE | 2025-01-16 19:28 | HISTORY AND PHYSICAL-Residence ---
History & Physical Providers to CC Resident Creating Document: DUC MARROQUIN, RES ~ History of Present Illness Primary Medical Doctor: NONE Reason for Admit\Complaint: Presyncope History of Present Illness Patient is an 69-year-old female with multiple medical problems including dementia, chronic back pain, psoriatic arthritis, CAD status post CABG in 07/06, hypertension, type 2 diabetes, COPD, WALTERS, Crohn's disease, celiac disease and history of stroke who came to the ED after a fall did patient reports that yesterday while he was having dinner his grandson had a choking episode, he tried to stand up suddenly and felt dizzy and fell onto the floor. He denies losing consciousness but hit his head and left hip and elbow. He continued to have pain which made him come to the ER. He denied any chest pain, palpitations, fever, cough, burning sensation in the urine, nausea, vomiting. He reports that he has chronic history of on and off diarrhea. History of seizures. Reports having similar episodes in the past where he feels lightheaded or dizzy when he tries to stand up. No recent changes in medications He reports that he has chronic back pain issues and had multiple surgeries. Lives alone at home and has a [employer] worker. His home medications include clonazepam, losartan, metoprolol, venlafaxine.. He manages his own medications. Allergies: Coded Allergies: atorvastatin (Verified Allergy, Unknown, 12/01/24) pitavastatin (Verified Allergy, Unknown, 12/01/24) pregabalin (Verified Allergy, Unknown, suicide ideations, rash, 12/01/24) rosuvastatin (Verified Allergy, Unknown, 12/01/24) simvastatin (Verified Allergy, Unknown, 12/01/24) gluten (Unverified Adverse Reaction, Unknown, 12/01/24) Celiacs per MD note Home Medications Home Medications Active Losartan Potassium 50 Mg Tablet 50 Mg PO DAILY 30 Days Ezetimibe 10 Mg Tablet 10 Mg PO DAILY 90 Days Ferrous Sulfate 325 Mg (65 Mg Iron) Tablet 325 Mg PO DAILY 90 Days Reported Nexletol (Bempedoic Acid) 180 Mg Tablet 1 Tab PO DAILY 30 Days Jardiance (Empagliflozin) 25 Mg Tablet 1 Tab PO DAILY 30 Days Venlafaxine HCl ER (Venlafaxine HCl) 150 Mg Tab.er.24 1 Tab PO DAILY 30 Days Metformin ER* (Metformin HCl) 500 Mg Tab.sr.24h 2 Tab PO BID Fluticasone Propionate 50 Mcg/Actuation [place].susp 2 Sprays BOTHNARES DAILY Glimepiride 2 Mg Tablet 1 Tab PO BID predniSONE tablet (Prednisone) 5 Mg Tablet 1 Tab PO DAILY Metoprolol Tartrate 50 Mg Tablet 1 Tab PO BID Clonazepam 1 Mg Tablet 1 Mg PO TID PRN Nitrostat (Nitroglycerin) 0.4 Mg Tab.subl 1 Tab SL UD Aspir 81 (Aspirin) 81 Mg Tablet.dr 2 Tablet PO DAILY Past Medical History Past Medical History Dementia, chronic back pain, psoriatic arthritis, CAD status post CABG, hypertension, type 2 diabetes, COPD, WALTERS, Crohn's disease, celiac disease and history of stroke Past Surgical History Surgical History Comment Three-vessel CABG in June of 2024 Neck/lumbar surgery Umbilical hernia repair Appendectomy/possible bowel resection Right shoulder replacement x2 Family History Family History: FH: atrial fibrillation MOTHER, , Age: 93, Cause: Natural FH: heart disease FATHER, , Age: 80, Cause: Dementia Past Social History Social History Comment Quit smoking 30 years ago He denies any alcohol use He uses marijuana occasionally He lives alone and uses a walker for assistance Smoking: Quit greater than 1 year Alcohol Use: None Drug Use: None Lives with: Spouse Lives In: Home Occupation: disabled ROS Constitutional: Denies: no symptoms reported, see HPI, chills, diaphoresis, fever, malaise, weakness, other ENT: Denies: no symptoms reported, see HPI, ear pain, ear bleeding, ear discharge, hearing loss, ear ringing, nose pain, nose bleeding, nose congestion, nose discharge, throat pain, throat swelling, voice change, mouth pain, mouth bleeding, mouth swelling, other Respiratory: Denies: no symptoms reported, see HPI, cough, orthopnea, shortness of breath, SOB with exertion, SOB at rest, stridor, wheezing, hemoptysis, pain with breathing, other Cardiovascular: Reports: syncope; Denies: no symptoms reported, see HPI, chest pain, left arm pain, diaphoresis, lightheadedness, edema, palpitations, irregular heart rate, other Gastrointestinal: Denies: no symptoms reported, see HPI, abdomen distended, abdominal pain, nausea, vomiting, diarrhea, constipated, melena, hematemesis, hematochezia, rectal bleeding, rectal pain, dysphagia, poor appetite, poor fluid intake, other Genitourinary: Denies: no symptoms reported, see HPI, burning, discharge, dysuria, frequency, flank pain, hematuria, incontinence, pain, decreased urine output, urgency, other Neurological: Denies: no symptoms reported, see HPI, speech problem, headache, dizziness, fainting, tingling, left sided numbness, right sided numbness, left sided weakness, right sided weakness, problems walking, unable to move lower ext, unable to move upper ext, petit mal seizures, tonic-clonic seizures, cognitive dysfunction, other Exam Vitals: Vital Signs Date Time Temp Pulse Resp B/P (MAP) Pulse Ox O2 Delivery O2 Flow Rate FiO2 01/16/25 18:10 18 01/16/25 17:48 Room Air 0.0 01/16/25 16:38 98.0 70 113/65 (81) 97 General: General: Forgetful but awake, alert oriented to place, time, and person HEENT: No pallor present, no icterus, moist mucous membranes Neck: No masses and tenderness Resp: Unlabored. Lungs clear to auscultation bilaterally. Chest: Normal expansion. Mid chest well healed surgical scar Cardiovascular: Regular Rate and rhythm, normal S1 and S2 without murmur, rub or gallop Abdomen: Soft nontender, no organomegaly, no guarding and rigidity, bowel sounds present Neuro: No focal weakness in the upper and lower limb muscles, power of the muscles 4/5 bilateral upper extremity and 3/5 in lower extremities, Extremities: No cyanosis,clubbing or edema Skin: Warm and Dry. Multiple bruises in the left elbow Psych: Normal affect Diagnostic Data Last Recorded Lab Results: 01/16/25 1051 01/16/25 1149 Diagnostic Data: Laboratory Tests Test 01/16/25 11:49 Prothrombin Time 10.7 SECONDS (9.0-12.0) INR International Normalized Ratio 1.0 INR Coagulation Comments Advance Care Planning Advanced Care plannin - 30 Minutes (I spent 17 minutes in discussing various resuscitative measures, the patient chose to be full code.) Additional Plan Assessment This is a 69-year-old male with history of multiple medical issues, was brought to the ER after he had an episode of fall. Patient has been admitted for further evaluation and management of presyncope PreSyncope likely secondary to orthostatic hypotension Fall Patient feeling lightheaded on standing up leading to a fall. Positive orthostatic vitals Started on fluids, NS@ 75 mL/hour Held home medication losartan, metoprolol, [id number] Placed on telemetry monitoring Echocardiogram done in July 06 today showed showed an ejection fraction of 50% with hypokinesia and mid inferior segments. Right atrium is mildly dilated WBC count is normal, urine analysis no signs of infection, U tox positive for fentanyl and cannabinoids Fall precautions Head CT showed global brain atrophy, chronic ischemic changes, sinus disease Cervical spine CT showed no acute cervical spine fracture or malalignment Chest, abdomen, pelvis CT showed no acute findings Elbow x-ray showed no fracture or dislocation Hip x-ray ordered CAD s/p CABG CHF with reduced ejection fraction not in acute exacerbation Echocardiogram done in July 06 today showed showed an ejection fraction of 50% with hypokinesia and mid inferior segments. Right atrium is mildly dilated Continued patient's home medication aspirin, ezetimibe Held home medication metoprolol and losartan because of low blood pressures. Type 2 diabetes mellitus A1c in 12/06, 9.1 Started on Lantus 13 units and medium dose hyperglycemia protocol Chronic back pain Psoriatic arthritis Continue [place] p.r.n. Other chronic conditions WALTERS Crohn's disease Celiac disease History of dementia Code status: Full code DVT prophylaxis: Heparin Diet: Carb controlled diet Duc Marroquin M.D PGy2 Date of Service: Jan 16, 2025 Billing Provider: GRACE HILLS MD Common Visit Codes: [id number] INP/OBS CARE (HIGH) Secondary Visit Codes: [id number] CARE PLAN 30 MINUTES DUC MARROQUIN, RES Jan 16, 2025 19:28 GRACE HILLS MD Jan 18, 2025 07:38
--- NOTE | 2025-01-16 19:45 | RADIOLOGY REPORT ---
CLINICAL INDICATION: fall TECHNIQUE: DI HIP, 1 VIEW WITH PELVIS Comparison: DI PELVIS,LIMITED 1-2 VIEWS on DOS: 10/02/23 FINDINGS/IMPRESSION: : No acute fracture or dislocation. Moderate bilateral hip degenerative changes with joint space narrowing and osteophytes. Contrast noted in the urinary bladder.
[2025-01-16] MEDS: K and/or MAG REPLACEMENT MC SCH (19:53)
[2025-01-16 20:00] VITALS: BP_SYST 119; BP_SYST 132; BP_SYST 92; BP_DIAS 65; BP_DIAS 79; BP_DIAS 93; PULSE 79; PULSE 82; PULSE 95; RESP 18
[2025-01-16] MEDS: docusate sod 100mg capsule PO SCH (21:15)
[2025-01-16] MEDS: heparin, porcine 5000 units/ml vial SQ SCH (21:15)
[2025-01-16] MEDS: INSULIN LISPRO 100 UNIT/ML INSULN.PEN MULTI-DOSE SQ SCH (21:19)
[2025-01-16] MEDS: insulin glargine (Lantus) pen - multi-dose SQ SCH (21:22)
[2025-01-16] MEDS ORDERED: PRAZ1CAP5 PO (21:25)
[2025-01-16] MEDS: normal saline 1000ml 1,000 ML IV SCH (21:59)
[2025-01-16 22:00] VITALS: BP 118/75; PULSE 84; RESP 16; TEMP 97.6; O2SAT 97
[2025-01-17 06:42] LABS: MEAN PLATELET VOLUME 7.7 FL (7.4-10.4); RED CELL DISTRIBUTION WIDTH 17.4 % (11.5-14.5)
[2025-01-17 06:52] VITALS: BP 136/84; PULSE 92; RESP 13; TEMP 97.7; O2SAT 99
[2025-01-17 07:14] LABS: CREATININE 0.94 MG/DL (0.60-1.10); TOTAL CARBON DIOXIDE 26.6 MMOL/L (24-32); eCRCL 69 ML/MIN; eGFR 79 ML/MIN
[2025-01-17 08:00] VITALS: BP_SYST 116; BP_SYST 121; BP_SYST 123; BP_DIAS 77; BP_DIAS 86; BP_DIAS 96; PULSE 100; PULSE 109; PULSE 97; RESP 18
[2025-01-17] MEDS: BEMPEDOIC ACID 180 MG PO SCH (08:00)
[2025-01-17] MEDS: potassium Cl 20 mEq SR tablet PO PRN (08:16)
[2025-01-17] MEDS: venlafaxine XR 75mg capsule (Q24H) PO SCH (08:17)
[2025-01-17] MEDS: EMPAGLIFLOZIN 25 MG TABLET PO SCH (08:17)
[2025-01-17] MEDS: aspirin 81mg, enteric-coated 1 TAB TABLET.DR PO SCH (08:18)
[2025-01-17 11:42] VITALS: BP 121/86; PULSE 97; RESP 16; TEMP 97.8; O2SAT 98
[2025-01-17] MEDS ORDERED: DUTA0.5C40 PO (16:21)
[2025-01-17] MEDS ORDERED: tamsulosin hcl PO (16:23)
[2025-01-17 18:00] VITALS: BP 95/57; PULSE 69; RESP 16; TEMP 97.8; O2SAT 97
--- NOTE | 2025-01-17 18:11 | PROGRESS NOTE- Residence ---
Progress Note - Resident Providers to CC Resident Creating Document: COREEN CLEMENS, ELZBIETA ~ Central Line/PICC still needed: N\A Ramos-Non Protocol Ramos Indications Met/Not Met: F/C Indications Not Met Antibiotic Timeout Antibiotic Ordered?: No MRSA Education MRSA Education Provided to pt: No Objective Vital Signs Date Time Temp Pulse Resp B/P (MAP) Pulse Ox O2 Delivery O2 Flow Rate FiO2 01/17/25 13:34 16 01/17/25 11:42 97.8 97 121/86 (98) 98 Room Air 01/17/25 08:00 0.0 Result Diagram: 01/17/2561801/17/25618 General: Forgetful but awake, alert oriented to place, time, and person HEENT: No pallor present, no icterus, moist mucous membranes Neck: No masses and tenderness Resp: Unlabored. Lungs clear to auscultation bilaterally. Chest: Normal expansion. Mid chest well healed surgical scar Cardiovascular: Regular Rate and rhythm, normal S1 and S2 without murmur, rub or gallop Abdomen: Soft nontender, no organomegaly, no guarding and rigidity, bowel sounds present Neuro: No focal weakness in the upper and lower limb muscles, power of the muscles 4/5 bilateral upper extremity and 3/5 in lower extremities, Extremities: No cyanosis,clubbing or edema Skin: Warm and Dry. Multiple bruises in the left elbow Psych: Normal affect Coagulation Studies Laboratory Tests Test 01/16/25 11:49 Prothrombin Time 10.7 SECONDS (9.0-12.0) INR International Normalized Ratio 1.0 INR Coagulation Comments Plan Plan Assessment This is a 69-year-old male with history of multiple medical issues, was brought to the ER after a syncopal episode. He has history of multiple syncopal episodes in the past 2 months. Also has history of significant weight loss of 70 lb in the past 1 year. Currently been admitted for evaluation of syncope. Syncope likely secondary to orthostatic hypotension Recent fall With trauma to scalp and pelvis. Multiple syncopal episodes in the past with varying symptoms from dizziness to mechanical fall to imbalance to confusion. Orthostatic vitals negative today, ordered tessa hoses, Stoped fluids today. Held home medication losartan, metoprolol, in view of of his soft blood pressure Placed on telemetry monitoring Echocardiogram done in July 06 today showed showed an ejection fraction of 50% with hypokinesia and mid inferior segments. Right atrium is mildly dilated WBC count is normal, urine analysis no signs of infection U tox positive for fentanyl and cannabinoids Fall precautions Head CT showed global brain atrophy, chronic ischemic changes, sinus disease X-ray ruled out fracture. Awaiting MRI and EEG. CAD s/p CABG CHF with reduced ejection fraction not in acute exacerbation Echocardiogram done in July 06 today showed showed an ejection fraction of 50% with hypokinesia and mid inferior segments. Right atrium is mildly dilated Continued patient's home medication aspirin, ezetimibe Held home medication metoprolol and losartan because of low blood pressures. Type 2 diabetes mellitus A1c in 12/06, 9.1 Started on Lantus 13 units and medium dose hyperglycemia protocol Chronic back pain Psoriatic arthritis Continue [place] p.r.n. Other chronic conditions WALTERS Crohn's disease Celiac disease History of dementia Code status: Full code DVT prophylaxis: Heparin Diet: Carb controlled diet Coreen Clemens, PGY1, Internal Medicine. Date of Service: Jan 17, 2025 Billing Provider: GRACE HILLS MD Common Visit Codes: [id number] INP/OBS CARE(HIGH) COREEN CLEMENS, RES Jan 17, 2025 18:11 GRACE HILLS MD Jan 18, 2025 07:39
[2025-01-17 20:00] VITALS: BP_SYST 109; BP_SYST 135; BP_DIAS 69; BP_DIAS 73; PULSE 72; PULSE 79; RESP 16; O2SAT 97
[2025-01-17] MEDS: normal saline 500ml IV soln 500 ML IV ONE ×2 (21:51)
[2025-01-17 22:00] VITALS: BP 135/69; PULSE 72; RESP 13; TEMP 98; O2SAT 97
[2025-01-18] MEDS: magnesium hydroxide 30ml (MOM) UD suspension PO PRN (05:07)
[2025-01-18 06:29] LABS: MEAN PLATELET VOLUME 7.4 FL (7.4-10.4); RED CELL DISTRIBUTION WIDTH 17.5 % (11.5-14.5)
[2025-01-18 06:35] VITALS: BP 118/60; PULSE 54; RESP 14; TEMP 97.5; O2SAT 97
[2025-01-18] MEDS: DEXTROSE 15 GM of carb/4 tabs (each vial/BOTTLE has 4 tablets) PO PRN (07:04)
[2025-01-18 07:21] LABS: CREATININE 0.94 MG/DL (0.60-1.10); TOTAL CARBON DIOXIDE 25.3 MMOL/L (24-32); eCRCL 69 ML/MIN; eGFR 79 ML/MIN
[2025-01-18 08:00] VITALS: RESP 14; RESP 16; O2SAT 98
[2025-01-18 09:51] VITALS: BP 127/86; PULSE 78; RESP 14; TEMP 97.8
--- NOTE | 2025-01-18 12:09 | PROCEDURE NOTE ---
Procedure Note Providers to CC ~ Interpretation: [place] EEG Note # Demographics Type of EEG Read: - Routine EEG - video Patient Location: Inpatient First Name: Charles Last Name: Joon Date of : 1955 Age: 69 Gender: Male Facility: [facility] Time of Initial Page (): 01/18/2025 10:11 First Contact with Site (): 01/18/2025 10:13 # EEG Interpretation Start Time of EEG Read (): 01/18/2025 10:03 Stop Time of EEG Read (): 01/18/2025 11:03 Duration: 1h 0m Technical Details: - The EEG electrodes were placed using the standard International 10-20 system of electrode placement. Video and an accessory EKG lead were used during the course of this study. - This study was recorded using the [employer] EEG software Indication: - seizure # Description Phases Captured: - awake - drowsy Symmetry: symmetric Posterior Dominant Rhythm: - present, attenuates on eye opening 9 Hz Amplitude: normal Reactivity: yes Variability: yes Continuity: continuous # Abnormalities Epileptiform Abnormalities: - NOT present Focal Slowing: no Seizure: - NOT present # Impression Impression: normal # Clinical Correlation Clinical Correlation: A normal EEG does not exclude nor support the diagnosis of epilepsy. # [employer] Telemedicine: remote EEG review: EEG reviewed remotely # Demographics First Name: Charles Last Name: Joon Facility: [facility] SHORTY ROSS MD Jan 18, 2025 12:08
[2025-01-18 12:11] VITALS: BP_SYST 104; BP_SYST 110; BP_SYST 124; BP_DIAS 63; BP_DIAS 77; BP_DIAS 82; PULSE 70; PULSE 78
[2025-01-18 12:12] VITALS: BP 110/82; PULSE 70; RESP 16; TEMP 98.2; O2SAT 99
--- NOTE | 2025-01-18 12:21 | RADIOLOGY REPORT ---
[facility] EXAMINATION: MR MRI HEAD INDICATION: Syncope. COMPARISON: CT CT HEAD on DOS: 01/16/25. TECHNIQUE: Multiplanar, multisequence magnetic resonance imaging of the brain was performed without the use of intravenous contrast. FINDINGS: No evidence of acute infarct. No intracranial hemorrhage. No mass effect. There is generalized volume loss. There is periventricular/deep white matter T2/FLAIR hyperintensity is nonspecific, but most commonly associated with chronic microvascular disease. The ventricles and sulci are normal in size for age. Clear basal cisterns. Flow voids in the major intracranial vessels are maintained. No abnormality of the orbits. Paranasal sinuses and mastoid air cells are clear. No abnormality of the visualized osseous structures and extracranial soft tissues. IMPRESSION: 1. No acute infarct, intracranial hemorrhage, mass effect, or hydrocephalus.
[2025-01-18] MEDS ORDERED: MUPI15CR12 TOP (16:14)
--- NOTE | 2025-01-18 18:42 | DISCHARGE SUMMARY-Residence ---
Discharge Summary Providers to CC Resident Creating Document: COREEN CLEMENS RES ~ Discharge Summary Admission Diagnosis: Fall Hospital Course DATE OF ADMISSION: 11/16/2024 DATE OF DISCHARGE: 11/18/2024 Discharge Diagnosis\Comment: Syncope secondary to orthostatic hypotension CAD status post CABG CHF with reduced ejection fraction not in acute exacerbation Type 2 diabetes mellitus Chronic back pain Ischemic stroke with residual weakness. Hypertension Operations\Procedures: None Consultants: None Complications: None Condition on DC: Stable New Medications: Mupirocin Calcium (Mupirocin) 2 % Cream..g. 1 APPLIC TOP Q8H for 10 Days, #30 GM 0 Refills Continued Medications: Aspirin (Aspir 81) 81 Mg Tablet.dr 2 TABLET PO DAILY, #30 TABLET 5 Refills Bempedoic Acid (Nexletol) 180 Mg Tablet 1 TAB PO DAILY for 30 Days, #30 TAB 0 Refills Clonazepam (Clonazepam) 1 Mg Tablet 1 MG PO TID PRN for . Dutasteride* (Avodart*) 0.5 Mg Capsule 0.5 MG PO DAILY, TAB Empagliflozin (Jardiance) 25 Mg Tablet 1 TAB PO DAILY for 30 Days, #30 TAB 0 Refills Ezetimibe (Ezetimibe) 10 Mg Tablet 10 MG PO DAILY for 90 Days, #90 TAB Ferrous Sulfate (Ferrous Sulfate) 325 Mg (65 Mg Iron) Tablet 325 MG PO DAILY for 90 Days, #90 TAB Fluticasone Propionate (Fluticasone Propionate) 50 Mcg/Actuation [place].susp 2 SPRAYS BOTHNARES DAILY, GM 0 Refills Glimepiride (Glimepiride) 2 Mg Tablet 1 TAB PO BID Losartan Potassium (Losartan Potassium) 50 Mg Tablet 50 MG PO DAILY for 30 Days, #30 TAB Metformin Hcl* (Metformin ER*) 500 Mg Tab.sr.24h 2 TAB PO BID Metoprolol Tartrate (Metoprolol Tartrate) 50 Mg Tablet 1 TAB PO BID Nitroglycerin (Nitrostat) 0.4 Mg Tab.subl 1 TAB SL UD, #100 TAB Prazosin Hcl (Prazosin Hcl) 1 Mg Capsule 1 CAP PO HS Prednisone (predniSONE tablet) 5 Mg Tablet 1 TAB PO DAILY [tamsulosin hcl] () 0.4 MG PO DAILY Venlafaxine HCl (Venlafaxine HCl ER) 150 Mg Tab.er.24 1 TAB PO DAILY for 30 Days, #30 TAB 0 Refills Discharge Summary: History of present illness: Patient is an 69-year-old male with multiple medical problems including dementia, chronic back pain, arthritis, CAD status post CABG in 07/06, hypertension, type 2 diabetes, history of ischemic stroke with residual weakness on left side who came to the ED after a syncopal episode and a fall. He has been a syncopal episode of feeling lightheaded after standing up suddenly and moving too quickly. He complains of having many such syncopal episodes in the past 2 months. Some of his syncopal episodes have not been up with confusion and disorientation. No history of seizures. No recent changes in medications He reports that he has chronic back pain issues and had multiple surgeries. Lives alone at home and has a [employer] worker. Hospital course: Head CT and x-ray of the pelvis and spine ruled out fracture. The patient was found to have orthostatic hypotension. He was treated with IV fluid hydration and Burke hoses. We ruled out stroke TIA and seizures with MRI and EEG. Tele monitoring showed sinus rhythm. Blood work was essentially normal. U tox was positive for fentanyl and cannabinoids. The patient was placed on fall precautions. He underwent chest abdomen pelvis CT for his recent history of significant weight loss. We found a 6 mm ground-glass nodule in his lung, advised the patient to monitor the size every 1 [address] getting a CT chest. Patient is hemodynamically stable and and symptomatically better and hence being discharged. PT cleared him for home independent. Vital Signs Date Time Temp Pulse Resp B/P (MAP) Pulse Ox O2 Delivery O2 Flow Rate FiO2 01/18/25 12:12 98.2 70 16 110/82 (91) 99 Room Air 01/17/25 08:00 0.0 Laboratory Tests Test 01/16/25 21:05 01/17/25 06:19 01/17/25 07:22 01/17/25 12:13 Glucometer 286 mg/dl 96 mg/dl 172 mg/dl White Blood Count 5.8 X10'3 Red Blood Count 3.77 X10'6 Hemoglobin 9.8 g/dl Hematocrit 29.4 % Mean Corpuscular Volume 78.1 FL Mean Corpuscular Hemoglobin 25.9 PG Mean Corpuscular Hemoglobin Concent 33.1 g/dL Red Cell Distribution Width 17.4 % Platelet Count 324 X10'3 Mean Platelet Volume 7.7 FL Neutrophils (%) (Auto) 44.5 % Lymphocytes (%) (Auto) 44.7 % Monocytes (%) (Auto) 7.9 % Eosinophils (%) (Auto) 1.6 % Basophils (%) (Auto) 1.3 % Neutrophils # (Auto) 2.6 X10'3 Lymphocytes # (Auto) 2.6 X10'3 Monocytes # (Auto) 0.5 X10'3 Eosinophils # (Auto) 0.1 X10'3 Basophils # (Auto) 0.1 X10'3 CBC Comment Sodium Level 142 MMOL/L Potassium Level 3.3 MMOL/L Chloride Level 108 MMOL/L Carbon Dioxide Level 26.6 MMOL/L Anion Gap 7 Blood Urea Nitrogen 21 MG/DL Creatinine 0.94 MG/DL Estimated GFR/1.73 m2 79 ML/MIN BUN/Creatinine Ratio 22.3 Glucose Level 100 MG/DL Calcium Level 8.3 MG/DL Magnesium Level 1.8 MG/DL Total Bilirubin 0.2 MG/DL Aspartate Amino Transf (AST/SGOT) 9 U/L Alanine Aminotransferase (ALT/SGPT) 8 U/L Alkaline Phosphatase 57 IU/L Total Protein 6.1 G/DL Albumin 2.9 G/DL Globulin 3.2 G/DL Albumin/Globulin Ratio 0.9 Chemistry Comments Test 01/17/25 17:11 01/17/25 21:09 01/18/25 06:12 01/18/25 07:01 Glucometer 144 mg/dl 139 mg/dl 69 mg/dl White Blood Count 6.3 X10'3 Red Blood Count 4.00 X10'6 Hemoglobin 10.3 g/dl Hematocrit 31.3 % Mean Corpuscular Volume 78.1 FL Mean Corpuscular Hemoglobin 25.7 PG Mean Corpuscular Hemoglobin Concent 32.9 g/dL Red Cell Distribution Width 17.5 % Platelet Count 366 X10'3 Mean Platelet Volume 7.4 FL Neutrophils (%) (Auto) 61.7 % Lymphocytes (%) (Auto) 30.0 % Monocytes (%) (Auto) 6.6 % Eosinophils (%) (Auto) 0.4 % Basophils (%) (Auto) 1.3 % Neutrophils # (Auto) 3.9 X10'3 Lymphocytes # (Auto) 1.9 X10'3 Monocytes # (Auto) 0.4 X10'3 Eosinophils # (Auto) 0.0 X10'3 Basophils # (Auto) 0.1 X10'3 CBC Comment Erythrocyte Sedimentation Rate 14 MM/HR Sodium Level 144 MMOL/L Potassium Level 3.8 MMOL/L Chloride Level 110 MMOL/L Carbon Dioxide Level 25.3 MMOL/L Anion Gap 9 Blood Urea Nitrogen 16 MG/DL Creatinine 0.94 MG/DL Estimated GFR/1.73 m2 79 ML/MIN BUN/Creatinine Ratio 17.0 Glucose Level 64 MG/DL Calcium Level 8.2 MG/DL Magnesium Level 1.8 MG/DL Total Bilirubin 0.2 MG/DL Aspartate Amino Transf (AST/SGOT) 11 U/L Alanine Aminotransferase (ALT/SGPT) 9 U/L Alkaline Phosphatase 57 IU/L Total Protein 6.2 G/DL Albumin 2.9 G/DL Globulin 3.3 G/DL Albumin/Globulin Ratio 0.9 Chemistry Comments Test 01/18/25 07:32 01/18/25 12:06 Glucometer 141 mg/dl 88 mg/dl Imaging: Head MRI: No acute infarct, intracranial hemorrhage, mass effect, or hydrocephalus. Elbow x-ray: No fracture or dislocation. ' Hip x-ray: No acute fracture or dislocation. Moderate bilateral hip degenerative changes with joint space narrowing and osteophytes. Contrast noted in the urinary bladder Chest x-ray: No acute disease. Cervical spine CT: No acute cervical spine fracture or malalignment. Head CT: 1. Mild global brain atrophy and chronic ischemic changes without evidence of acute intracranial process. 2. Mild left sphenoid sinus disease and evidence of old chronic left maxillary sinus disease. Physical exam on discharge: General: Forgetful but awake, alert oriented to place, time, and person HEENT: No pallor present, no icterus, moist mucous membranes Neck: No masses and tenderness Resp: Unlabored. Lungs clear to auscultation bilaterally. Chest: Normal expansion. Mid chest well healed surgical scar Cardiovascular: Regular Rate and rhythm, normal S1 and S2 without murmur, rub or gallop Abdomen: Soft nontender, no organomegaly, no guarding and rigidity, bowel sounds present Neuro: No focal weakness in the upper and lower limb muscles, power of the muscles 4/5 bilateral upper extremity and 3/5 in lower extremities, Extremities: No cyanosis,clubbing or edema Skin: Warm and Dry. Multiple bruises in the left elbow Psych: Normal affect Discharge instructions: Take all medications regularly. Follow up with your primary care provider in 1 week. Move around slowly, take a minute before you stand up and start walking. Apply mupirocin ointment on the wound on your hand. Used Burke hoses regularly. Visit ER immediately in case of any emergencies including dizziness, syncope, chest pain, palpitations. *Problems/Diagnosis: (1) Chronic back pain Status: Acute (2) Hypertension Status: Chronic (3) Type 2 diabetes mellitus Status: Chronic (4) Low back pain Status: Acute (5) Orthostatic hypotension Status: Acute (6) Syncope Status: Acute Total Time Spent on D/C: > 30 Minutes Counseling Services Smoking & Tobacco Cessation: N/A Date of Service: Jan 18, 2025 Billing Provider: GRACE HILLS MD Common Visit Codes: [id number] DISCH DAY >30min COREEN CLEMENS, ELZBIETA Jan 18, 2025 18:25 GRACE HILLS MD Jan 19, 2025 06:51
[2025-01-19] MEDS ORDERED: HYDR-3965 PO (06:48)
== END 2025-01-18 16:46 | disposition home health service (06) | DRG 312 ==
LOC: ER 10:34 → ED HOLD 15:30 → SUR 3N 16:40
PROVIDERS: ADMIT Internal Medicine; ATTEND Internal Medicine
PROC: BW251ZZ Computerized Tomography (CT Scan) of Chest, Abdomen and Pelvis using Low Osmolar Contrast (ICD-10-PCS; principal; 2025-01-16)
PROC: 4A00X4Z Measurement of Central Nervous Electrical Activity, External Approach (ICD-10-PCS; 2025-01-18)
DX: I95.1 Orthostatic hypotension (principal); I50.20 Unspecified systolic (congestive) heart failure; I11.0 Hypertensive heart disease with heart failure; E11.9 Type 2 diabetes mellitus without complications; F03.90 Unspecified dementia, unspecified severity, without behavioral disturbance, psychotic disturbance, mood disturbance, and anxiety; J44.9 Chronic obstructive pulmonary disease, unspecified; I69.30 Unspecified sequelae of cerebral infarction; K50.90 Crohn's disease, unspecified, without complications; Z20.822 Contact with and (suspected) exposure to COVID-19; G89.29 Other chronic pain; M54.9 Dorsalgia, unspecified; I25.10 Atherosclerotic heart disease of native coronary artery without angina pectoris; M54.2 Cervicalgia; M25.552 Pain in left hip; G31.9 Degenerative disease of nervous system, unspecified; Z79.899 Other long term (current) drug therapy; I25.2 Old myocardial infarction; Z95.1 Presence of aortocoronary bypass graft; Z88.8 Allergy status to other drugs, medicaments and biological substances; Z87.891 Personal history of nicotine dependence
CPT/HCPCS: 36415; 70450; 70551; 71045; 71260; 72125; 73080; 73501; 74177; 80048; 80053; 80305; 80320; 81001; 82140; 82948; 83605; 83735; 83880; 84484; 85025; 85610; 85651; 87081; 87804; 87811; 93005; 95816; 97116; 97162; 99285; G0378; J1171; J1644; J1815; J7030; J7040; Q9967